=== PATIENT | female | born 1935 | race American Indian/Alaskan Native ===

== ENCOUNTER 2018-07-20 18:35 | Emergency (ER) | payer MEDICARE, OTHER ==
--- NOTE | 2018-07-20 20:19 | Emergency Department Report ---
ED Back Pain/Injury HPI - General Chief Complaint: Back Pain/Injury Stated Complaint: BACK PAIN Time Seen by Provider: 07/20/18 20:15 Source: patient, EMS Limitations: Altered Mental Status - History of Present Illness Initial Comments: Patient is an 83-year-old female presents to emergency room after a fall at home. Patient states at the end this morning she fell down 6 stairs at home. Patient states she had her mid to lower back on the stairs. Patient states she has a history of compression fractures in her lower back already. Patient states that she called EMS because the pain was getting worse. Patient states the pain is an 8 out of 10. Patient states the pain is better with rest and worse with movement. Patient denies loss of consciousness and hitting her head. She states approximately 4 weeks ago she was diagnosed with a lumbar compression fracture and is being treated by her primary care. MD Complaint: back pain -: Sudden Place: home Radiation: none Severity scale (0 -10): 8 Quality: sharp Consistency: constant Improves With: supine Worsens With: movement, sitting upright, walking Context: fall Associated Symptoms: denies: confusion, weakness, chest pain, numbness, difficulty walking, cough, difficulty urinating, diaphoresis, incontinence, fever/chills, constipation, headaches, abdominal pain, loss of appetite, malaise , nausea/vomiting, rash, seizure, shortness of breath, syncope - Related Data Home Medications Medication Instructions Recorded Confirmed Last Taken Acetaminophen [Tylenol Extra 500 mg PO PRN 07/20/18 07/20/18 Unknown Strength] Amlodipine Besylate [Norvasc] 5 mg PO DAILY 07/20/18 07/20/18 Unknown Aspirin 325 mg PO PRN 07/20/18 07/20/18 Unknown Aspirin [Aspirin EC] 81 mg PO DAILY 07/20/18 07/20/18 Unknown Carvedilol [Coreg] 12.5 mg PO BID 07/20/18 07/20/18 Unknown Furosemide [Lasix] 20 mg PO DAILY 07/20/18 07/20/18 Unknown Gabapentin [Neurontin] 300 mg PO Q8HR 07/20/18 07/20/18 Unknown Loratadine [Allergy Relief] 10 mg PO PRN 07/20/18 07/20/18 Unknown Pantoprazole [Protonix TAB] 20 mg PO DAILY 07/20/18 07/20/18 Unknown Ranolazine [Ranexa] 500 mg PO BID 07/20/18 07/20/18 Unknown Simvastatin 20 mg PO HS 07/20/18 07/20/18 Unknown glyBURIDE [Diabeta] 2.5 mg PO DAILY 07/20/18 07/20/18 Unknown Previous Rx's Medication Instructions Recorded Last Taken Type traMADol [Ultram] 50 mg PO Q4HR PRN #15 tablet 07/20/18 Unknown Rx Allergies Allergy/AdvReac Type Severity Reaction Status Date / Time Penicillins Allergy Unknown Verified 07/20/18 19:28 ED Review of Systems ROS: Stated complaint: BACK PAIN Other details as noted in HPI Constitutional: denies: chills, fever Eyes: denies: eye pain, eye discharge, vision change ENT: denies: ear pain, throat pain Respiratory: denies: cough, shortness of breath, wheezing Cardiovascular: denies: chest pain, palpitations Endocrine: no symptoms reported Gastrointestinal: denies: abdominal pain, nausea, diarrhea Genitourinary: denies: urgency, dysuria, discharge Musculoskeletal: back pain. denies: joint swelling, arthralgia Skin: denies: rash, lesions Neurological: denies: headache, weakness, paresthesias Psychiatric: denies: anxiety, depression Hematological/Lymphatic: denies: easy bleeding, easy bruising ED Past Medical Hx - Past Medical History Previous Medical History?: Yes Hx Diabetes: Yes Hx Asthma: Yes Additional medical history: "hearing problems" L2 compression fracture/ - Surgical History Past Surgical History?: Yes Additional Surgical History: Aortic Valve Replacement - Family History Family history: hypertension - Social History Smoking Status: Never Smoker Substance Use Type: None - Medications Home Medications: Home Medications Medication Instructions Recorded Confirmed Last Taken Type Acetaminophen [Tylenol Extra 500 mg PO PRN 07/20/18 07/20/18 Unknown History Strength] Amlodipine Besylate [Norvasc] 5 mg PO DAILY 07/20/18 07/20/18 Unknown History Aspirin 325 mg PO PRN 07/20/18 07/20/18 Unknown History Aspirin [Aspirin EC] 81 mg PO DAILY 07/20/18 07/20/18 Unknown History Carvedilol [Coreg] 12.5 mg PO BID 07/20/18 07/20/18 Unknown History Furosemide [Lasix] 20 mg PO DAILY 07/20/18 07/20/18 Unknown History Gabapentin [Neurontin] 300 mg PO Q8HR 07/20/18 07/20/18 Unknown History Loratadine [Allergy Relief] 10 mg PO PRN 07/20/18 07/20/18 Unknown History Pantoprazole [Protonix TAB] 20 mg PO DAILY 07/20/18 07/20/18 Unknown History Ranolazine [Ranexa] 500 mg PO BID 07/20/18 07/20/18 Unknown History Simvastatin 20 mg PO HS 07/20/18 07/20/18 Unknown History glyBURIDE [Diabeta] 2.5 mg PO DAILY 07/20/18 07/20/18 Unknown History traMADol [Ultram] 50 mg PO Q4HR PRN #15 tablet 07/20/18 Unknown Rx ED Physical Exam - General Limitations: Altered Mental Status General appearance: alert, in no apparent distress - Head Head exam: Present: atraumatic, normocephalic - Eye Eye exam: Present: normal appearance - ENT ENT exam: Present: mucous membranes moist - Neck Neck exam: Present: normal inspection - Respiratory Respiratory exam: Present: normal lung sounds bilaterally. Absent: respiratory distress - Cardiovascular Cardiovascular Exam: Present: regular rate, normal rhythm. Absent: systolic murmur, diastolic murmur, rubs, gallop - GI/Abdominal GI/Abdominal exam: Present: soft, normal bowel sounds - Extremities Exam Extremities exam: Present: normal inspection - Back Exam Back exam: Present: normal inspection, tenderness (tenderness to palpation over T11-12 and L2-3 ) - Neurological Exam Neurological exam: Present: alert, oriented X3, CN II-XII intact, reflexes normal. Absent: motor sensory deficit - Psychiatric Psychiatric exam: Present: normal affect, normal mood - Skin Skin exam: Present: warm, dry, intact, normal color. Absent: rash ED Course Vital Signs 07/20/18 07/20/18 07/20/18 19:12 19:17 19:20 Temperature 98.2 F Pulse Rate 76 74 73 Respiratory 14 13 14 Rate Blood Pressure 146/69 146/69 O2 Sat by Pulse 98 98 96 Oximetry 07/20/18 07/20/18 07/20/18 19:40 20:00 20:20 Temperature Pulse Rate 74 76 Respiratory 14 13 Rate Blood Pressure 154/61 154/64 154/64 O2 Sat by Pulse 97 96 98 Oximetry 07/20/18 07/20/18 07/20/18 20:50 21:00 21:44 Temperature Pulse Rate 73 72 Respiratory 14 14 Rate Blood Pressure 154/61 138/66 138/66 O2 Sat by Pulse 97 94 97 Oximetry 07/20/18 07/20/18 07/20/18 22:00 22:40 23:00 Temperature Pulse Rate 73 74 76 Respiratory 14 15 15 Rate Blood Pressure 132/62 163/68 136/55 O2 Sat by Pulse 98 97 95 Oximetry - Reevaluation(s) Reevaluation #1: Patient examined. Based on the patient's history and the patient's exam, we will do a CT scan of the patient's T-spine and L-spine 07/20/18 20:01 Skeletal results with patient. Patient voiced understanding of all results. Patient given discharge instructions. Patient instructed to take Ultram as directed. Patient states she does not want anything stronger than Ultram. 07/21/18 23:30 ED Medical Decision Making - Radiology Data Radiology results: report reviewed FINAL REPORT PROCEDURE: CT THORACIC SPINE WO CON TECHNIQUE: Computerized axial tomography of the thoracic spine was performed from C7 - L1 without contrast material. HISTORY: fall. pain COMPARISON: No prior studies are available for comparison. FINDINGS: The thoracic vertebrae are intact. There is a fracture of the superior endplate of L2. There are multilevel degenerative disc changes. There is no malalignment. Facet joints are intact. There is no significant bony spinal or foraminal stenosis. The paraspinal soft tissues are unremarkable. IMPRESSION: Thoracic vertebrae are intact. Transcribed By: CO Dictated By: SHAR MARTIN MD Electronically Authenticated By: SHAR MARTIN MD Signed Date/Time: 07/20/182202 FINAL REPORT PROCEDURE: CT LUMBAR SPINE WO CON TECHNIQUE: Computerized axial tomography of the lumbar spine was performed from T12 to the sacrum without contrast material. HISTORY: fall. pain COMPARISON: No prior studies are available for comparison. FINDINGS: There is depression of the superior endplate of L2 consistent with a recent fracture. There is no retropulsion or malalignment. There is no significant loss of vertebral body height. There is degenerative loss of disc height at L3-L4, L4-5 and L5-S1 with associated facet arthropathy and osteophytic ridging and severe bilateral foraminal stenosis. There is severe spinal stenosis at L3-L4 due to facet arthropathy, disc bulging and thickening of the ligamentum flavum. There is moderate spinal stenosis at L4-5. The sacrum and sacroiliac joints are intact. Paraspinal soft tissues are unremarkable. IMPRESSION: Recent compression deformity of the superior endplate of L2. Transcribed By: CO Dictated By: SHAR MARTIN MD Electronically Authenticated By: SHAR MARTIN MD Signed Date/Time: 07/20/18 2164 - Medical Decision Making Patient is an 83-year-old female presents emergency room with a fall at home. Patient states she had her thoracic and lumbar spine. CTs were done of the lumbar thoracic spine. Patient's only findings on her CT scan were her compression fraction that was found 4 weeks ago. It is a stable compression fraction and patient is stable for discharge. Patient will be discharged home with discharge instructions. Patient instructed to follow up with orthopedist and primary care in 3-5 days. Patient advised to return to ER for condition worsens. Patient advised to take her medications as directed. Patient to rest. Patient voiced understanding of all instructions. Family at bedside voiced understanding of all instructions. - Differential Diagnosis back pain. fall. contusion. fx. Critical care attestation.: If time is entered above; I have spent that time in minutes in the direct care of this critically ill patient, excluding procedure time. ED Disposition Clinical Impression: Fall Qualifiers: Encounter type: initial encounter Qualified Code(s): W19.XXXA - Unspecified fall, initial encounter Back pain Qualifiers: Back pain location: low back pain Chronicity: acute Back pain laterality: midline Sciatica presence: without sciatica Qualified Code(s): M54.5 - Low back pain Thoracic back pain Qualifiers: Chronicity: acute Back pain laterality: midline Qualified Code(s): M54.6 - Pain in thoracic spine Compression fracture of lumbar vertebra Qualifiers: Encounter type: initial encounter Lumbar vertebra fracture level: L2 Fracture type: closed Qualified Code(s): S32.020A - Wedge compression fracture of second lumbar vertebra, initial encounter for closed fracture Disposition: DC-01 TO HOME OR SELFCARE Is pt being admited?: No Does the pt Need Aspirin: No Condition: Stable Instructions: Vertebral Compression Fracture (ED) Additional Instructions: H and to follow up with primary care in 3-5 days. Patient to follow-up with orthopedist in 3-5 days. Patient to return to ER if condition worsens. Patient to rest. Patient to take meds as directed. Patient to take Tylenol or ibuprofen when necessary for pain Prescriptions: traMADol [Ultram] 50 mg PO Q4HR PRN #15 tablet PRN Reason: Pain Referrals: PRIMARY CARE, [Primary Care Provider] - 3-5 Days Time of Disposition: 23:16
--- NOTE | 2018-07-20 22:04 | Cat Scan Report ---
FINAL REPORT PROCEDURE: CT THORACIC SPINE WO CON TECHNIQUE: Computerized axial tomography of the thoracic spine was performed from C7 - L1 without contrast material. HISTORY: fall. pain COMPARISON: No prior studies are available for comparison. FINDINGS: The thoracic vertebrae are intact. There is a fracture of the superior endplate of L2. There are multilevel degenerative disc changes. There is no malalignment. Facet joints are intact. There is no significant bony spinal or foraminal stenosis. The paraspinal soft tissues are unremarkable. IMPRESSION: Thoracic vertebrae are intact.
--- NOTE | 2018-07-20 22:07 | Cat Scan Report ---
FINAL REPORT PROCEDURE: CT LUMBAR SPINE WO CON TECHNIQUE: Computerized axial tomography of the lumbar spine was performed from T12 to the sacrum without contrast material. HISTORY: fall. pain COMPARISON: No prior studies are available for comparison. FINDINGS: There is depression of the superior endplate of L2 consistent with a recent fracture. There is no retropulsion or malalignment. There is no significant loss of vertebral body height. There is degenerative loss of disc height at L3-L4, L4-5 and L5-S1 with associated facet arthropathy and osteophytic ridging and severe bilateral foraminal stenosis. There is severe spinal stenosis at L3-L4 due to facet arthropathy, disc bulging and thickening of the ligamentum flavum. There is moderate spinal stenosis at L4-5. The sacrum and sacroiliac joints are intact. Paraspinal soft tissues are unremarkable. IMPRESSION: Recent compression deformity of the superior endplate of L2.
[2018-07-20 23:33] VITALS: BP 136/55
== END 2018-07-21 00:11 | disposition home or self-care (01) ==
LOC: ED 18:35
DX: S32.020A Wedge compression fracture of second lumbar vertebra, initial encounter for closed fracture (principal); M54.5 Low back pain; M54.6 Pain in thoracic spine; E11.9 Type 2 diabetes mellitus without complications; J45.909 Unspecified asthma, uncomplicated; Z88.0 Allergy status to penicillin; Z95.2 Presence of prosthetic heart valve; W10.8XXA Fall (on) (from) other stairs and steps, initial encounter; Y93.01 Activity, walking, marching and hiking; Y99.0 Civilian activity done for income or pay; Y92.019 Unspecified place in single-family (private) house as the place of occurrence of the external cause
CPT/HCPCS: 72128; 72131

== ENCOUNTER 2019-05-31 18:28 | Emergency (ER) | payer MEDICARE, OTHER ==
[2019-05-31 18:34] VITALS: BP 147/61
--- NOTE | 2019-05-31 18:36 | Event Note ---
ED Screening Note Date of service: 05/31/19 Time: 18:32 ED Screening Note: This is a 83 y.o. F. that presents to the ER with left wrist and left hip pain. She also reports an abrasion to left forearm. Patient states she tripped over her foot in kitchen at home about 30 minutes [employer]. PMH DM, HTN, compression fx, diverticulosis, hearing loss Denies loss of consciousness This initial assessment/diagnostic orders/clinical plan/treatment(s) is/are subject to change based on patients health status, clinical progression and re- assessment by fellow clinical providers in the ED. Further treatment and workup at subsequent clinical providers discretion. Patient/guardian urged not to elope from the ED as their condition may be serious if not clinically assessed and managed. Initial orders include: XR left wrist and left hip
[2019-05-31] MEDS ORDERED: NORCO 5/325 PO ONE (19:11)
--- NOTE | 2019-05-31 19:22 | XRay Report ---
Left hip 2 views 1906 INDICATION: Fall Lower lumbar degenerative changes are seen. Moderate right and mild left hip degenerative changes are noted. Mild atherosclerotic changes are seen. Mild bilateral sacroiliac arthritic changes are noted. No fractures or dislocations are seen. Signer Name: Jesus Olivas MD Signed: 05/31/2019 7:18 PM Workstation Name: [id number]
--- NOTE | 2019-05-31 19:38 | Emergency Department Report ---
Upper Extremity - HPI Chief Complaint: Fall Stated Complaint: FELL ON ARM Time Seen by Provider: 05/31/19 18:31 Upper Extremity: Left Wrist Occurred When: Today Mechanism: Fall Severity: moderate Symptoms: Yes Pain with Movement, Yes Limited Range of Movement, Yes Swelling, No Deformity, No Numbness, No Weakness, No Bruising/Ecchymosis, No Laceration or Abrasion Other History: pt is a 83 y/o aaf who presents for left wrist pain swelling s/p GLF states she tried to catch herselft and bent her wrist backwards. pt comp lains of 5/10 aching and pain , pain exacerbated by movement , pain relieved by splinting , pt has secondary complaint of bilat hip pain hx of arthralgia ED Review of Systems ROS: Stated complaint: FELL ON ARM Other details as noted in HPI Constitutional: denies: chills, fever Eyes: denies: eye pain, eye discharge, vision change ENT: denies: ear pain, throat pain Respiratory: denies: cough, shortness of breath, wheezing Cardiovascular: denies: chest pain, palpitations Endocrine: no symptoms reported Gastrointestinal: denies: abdominal pain, nausea, vomiting, diarrhea Genitourinary: denies: urgency, dysuria, discharge Musculoskeletal: joint swelling, arthralgia, myalgia. denies: back pain Skin: denies: rash, lesions Neurological: denies: headache, weakness, numbness, paresthesias, confusion, abnormal gait, vertigo Psychiatric: denies: anxiety, depression Hematological/Lymphatic: denies: easy bleeding, easy bruising ED Past Medical Hx - Past Medical History Previous Medical History?: Yes Hx Hypertension: Yes Hx Congestive Heart Failure: No Hx Diabetes: Yes Hx Renal Disease: No Hx Arthritis: Yes Hx Asthma: Yes Additional medical history: "hearing problems" L2 compression fracture/ diverticulitis/diverticulosis - Surgical History Hx Cholecystectomy: Yes Hx Appendectomy: Yes Additional Surgical History: Aortic Valve Replacement. hystertectomy - Social History Smoking Status: Never Smoker Substance Use Type: None - Medications Home Medications: Home Medications Medication Instructions Recorded Confirmed Last Taken Type Amlodipine Besylate [Norvasc] 5 mg PO DAILY 07/20/18 09/11/18 09/08/18 History Aspirin [Aspirin EC] 81 mg PO DAILY 07/20/18 09/11/18 09/08/18 History Carvedilol [Coreg] 12.5 mg PO BID 07/20/18 09/11/18 09/08/18 History Furosemide [Lasix] 20 mg PO DAILY 07/20/18 09/11/18 09/08/18 History Gabapentin [Neurontin] 300 mg PO Q8HR 07/20/18 09/11/18 09/08/18 History Pantoprazole [Protonix TAB] 20 mg PO DAILY 07/20/18 09/11/18 09/08/18 History Ranolazine [Ranexa] 500 mg PO BID 07/20/18 09/11/18 Unknown History Simvastatin 20 mg PO HS 07/20/18 09/11/18 09/08/18 History glyBURIDE [Diabeta] 2.5 mg PO DAILY 07/20/18 09/11/18 09/08/18 History traMADol [Ultram 50 MG tab] 50 mg PO Q4HR PRN #15 tablet 07/20/18 09/11/18 09/08/18 Rx Pravastatin [Pravachol] 40 mg PO QHS tablet 08/18/18 09/11/18 09/08/18 Rx levoFLOXacin [Levaquin TAB] 750 mg PO Q24HR #10 tablet 08/18/18 09/11/18 09/08/18 Rx metroNIDAZOLE [Flagyl TAB] 500 mg PO Q8HR #30 tablet 08/18/18 09/11/18 09/08/18 Rx traMADol [Ultram 50 MG tab] 50 mg PO Q6HR PRN #14 tablet 09/02/18 09/11/18 09/08/18 Rx PE/Shark Liver/Ccb [Hemorrhoidal 1 each KS Q6H PRN #30 supp.rect 09/13/18 Unknown Rx 0.25/3/85.5%] HYDROcodone/APAP 5-325 [Lebo 1 each PO Q6HR PRN #12 tablet 05/31/19 Unknown Rx 5-325 mg TAB] Upper Extremity Exam - Exam General: Vital signs noted. No distress. Alert and acting appropriately. Head and Torso: No HEENT Abnormality, No Neck Tenderness, No Chest/Lungs Abnormality, No Abdominal Tenderness, No Back Tenderness Shoulder Exam: Yes Normal Range of Motion in Shoulder, No Shoulder Tenderness, No Clavicle Tenderness, No Shoulder Deformity, No AC Joint Tenderness Arm Exam: No Arm/Humerus Tenderness, No Arm Deformity Elbow: Yes Normal Range of Motion in Elbow, No Elbow Tenderness, No Elbow Deformity Forearm: Yes Pain with Pronation, Yes Pain with Supination, No Forearm Tenderness, No Forearm Deformity Wrist: Yes Wrist Tenderness, Yes Wrist Deformity, No Normal ROM in Wrist, No Snuffbox Tenderness, No Pain with Axial Thumb Compression Hand: Yes Digit Tenderness, Yes Normal ROM in Digit(s), No Hand Tenderness, No Hand Deformity, No Digit(s) Deformity, No Tendon Dysfunction CMS Exam: Yes Normal Distal Pulses, Yes Normal Capillary Refill, Yes Normal Distal Sensation, No Broken Skin ED Course Vital Signs 05/31/19 18:32 Temperature 97.8 F Pulse Rate 71 Respiratory 18 Rate Blood Pressure 147/61 O2 Sat by Pulse 97 Oximetry ED Medical Decision Making - Radiology Data Radiology results: report reviewed, image reviewed Ordering Physician: ANGELINA GUADALUPE Date of Service: 05/31/19 Procedure(s): XR hip 2-3V LT Accession Number(s): [id number] cc: ANGELINA GUADALUPE Fluoro Time In Minutes: Left hip 2 views 190 INDICATION: Fall Lower lumbar degenerative changes are seen. Moderate right and mild left hip degenerative changes are noted. Mild atherosclerotic changes are seen. Mild bilateral sacroiliac arthritic changes are noted. No fractures or dislocations are seen. Signer Name: Jesus Olivas MD Signed: 05/31/2019 7:18 PM Workstation Name: [id number] Transcribed By: GJ Dictated By: Jesus Olivas MD Electronically Authenticated By: Jesus Olivas MD Signed Date/Time: 05/31/191917 DD/ 15 TD/TT: closed distal radial fracture Ordering Physician: ANGELINA GUADALUPE Date of Service: 05/31/19 Procedure(s): XR wrist 2V LT Accession Number(s): [id number] cc: ANGELINA GUADALUPE Fluoro Time In Minutes: Left wrist 2 views 1853 INDICATION: Fall, wrist deformity A comminuted and impacted fracture of the distal radius is seen involving the metaphysis extending to the radiocarpal joint in the lateral aspect. This appears to be mildly comminuted. Dorsal angulation is seen. Avulsion of the ulnar styloid is seen at the base. Bone fragments are seen displaced dorsally which may be part of the ulnar ovoid though could include radial fragments. No definite dislocation is seen as I believe the lunate continues to articulate with portion of the distal radius. Moderate arthritic changes are seen laterally and at the radiocarpal joint. 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 plan, velcro thumb spica , follow up with Ortho tomorrow, hydrocodone prn pain, Critical care attestation.: If time is entered above; I have spent that time in minutes in the direct care of this critically ill patient, excluding procedure time. ED Disposition Clinical Impression: Closed fracture of distal end of radius Qualifiers: Encounter type: initial encounter Fracture morphology: unspecified fracture morphology Laterality: left Qualified Code(s): S52.502A - Unspecified fracture of the lower end of left radius, initial encounter for closed fracture Arthralgia Qualifiers: Joint pain location: hip Laterality: bilateral Qualified Code(s): M25.551 - Pain in right hip Fall Qualifiers: Encounter type: initial encounter Qualified Code(s): W19.XXXA - Unspecified fall, initial encounter Disposition: - TO HOME OR SELFCARE Is pt being admited?: No Does the pt Need Aspirin: No Condition: Stable Instructions: Wrist Fracture in Adults (ED), Arthralgia (ED) Prescriptions: HYDROcodone/APAP 5-325 [Lebo 5-325 mg TAB] 1 each PO Q6HR PRN #12 tablet PRN Reason: Pain Referrals: DEONNA CRUZ MD [Staff Physician] - 24 Hours Forms: Work/School Release Form(ED) Time of Disposition: 20:43
--- NOTE | 2019-05-31 19:40 | XRay Report ---
Left wrist 2 views 185 INDICATION: Fall, wrist deformity A comminuted and impacted fracture of the distal radius is seen involving the metaphysis extending to the radiocarpal joint in the lateral aspect. This appears to be mildly comminuted. Dorsal angulation is seen. Avulsion of the ulnar styloid is seen at the base. Bone fragments are seen displaced dorsal ly which may be part of the ulnar ovoid though could include radial fragments. No definite dislocatio n is seen as I believe the lunate continues to articulate with portion of the distal radius. Moderate arthritic changes are seen laterally and at the radiocarpal joint. Signer Name: Jesus Olvias MD Signed: 05/31/2019 7:36 PM Workstation Name: [id number]
== END 2019-05-31 20:55 | disposition home or self-care (01) ==
LOC: ED 18:28
DX: S52.502A Unspecified fracture of the lower end of left radius, initial encounter for closed fracture (principal); I10 Essential (primary) hypertension; E11.9 Type 2 diabetes mellitus without complications; M19.90 Unspecified osteoarthritis, unspecified site; J45.909 Unspecified asthma, uncomplicated; Z90.49 Acquired absence of other specified parts of digestive tract; Z90.710 Acquired absence of both cervix and uterus; Z88.0 Allergy status to penicillin; Z79.82 Long term (current) use of aspirin; Z79.899 Other long term (current) drug therapy; W18.30XA Fall on same level, unspecified, initial encounter; Y93.89 Activity, other specified; Y92.89 Other specified places as the place of occurrence of the external cause; Y99.8 Other external cause status
CPT/HCPCS: 99284

== ENCOUNTER 2019-06-07 11:13 | Emergency (ER) | payer MEDICARE, OTHER ==
[2019-06-07 11:50] VITALS: BP 135/42
--- NOTE | 2019-06-07 11:55 | Emergency Department Report ---
ED Recheck HPI - General Chief Complaint: Extremity Problem,Nontraumatic Stated Complaint: PAIN Time Seen by Provider: 06/07/19 11:47 Source: patient Mode of arrival: Wheelchair Limitations: No Limitations - History of Present Illness Initial Comments: This is a 84-year-old female nontoxic well in appearance with no signs of distress presents to the ED for medication refill. Patient has a left velcro splint. Patient denies any new trauma or injures. Patient denies any other symptoms or complaints. Stated has orthopedic follow-up next week [place]. Denies any fever, chills, headache, nausea, vomiting, chest pain or SOB. Denies any other complaints. Patient stated allergies to PCN. Symptoms Since Prior Visit: no new symptoms Associated Symptoms: none. denies: fever, chills, chest pain, shortness of breath, rash, malaise, [place], abdominal pain - Related Data Home Medications Medication Instructions Recorded Confirmed Last Taken Amlodipine Besylate [Norvasc] 5 mg PO DAILY 07/20/18 09/11/18 09/08/18 Aspirin [Aspirin EC] 81 mg PO DAILY 07/20/18 09/11/18 09/08/18 Carvedilol [Coreg] 12.5 mg PO BID 07/20/18 09/11/18 09/08/18 Furosemide [Lasix] 20 mg PO DAILY 07/20/18 09/11/18 09/08/18 Gabapentin [Neurontin] 300 mg PO Q8HR 07/20/18 09/11/18 09/08/18 Pantoprazole [Protonix TAB] 20 mg PO DAILY 07/20/18 09/11/18 09/08/18 Ranolazine [Ranexa] 500 mg PO BID 07/20/18 09/11/18 Unknown Simvastatin 20 mg PO HS 07/20/18 09/11/18 09/08/18 glyBURIDE [Diabeta] 2.5 mg PO DAILY 07/20/18 09/11/18 09/08/18 Previous Rx's Medication Instructions Recorded Last Taken Type traMADol [Ultram 50 MG tab] 50 mg PO Q4HR PRN #15 tablet 07/20/18 09/08/18 Rx Pravastatin [Pravachol] 40 mg PO QHS tablet 10/18/18 11/08/18 Rx levoFLOXacin [Levaquin TAB] 750 mg PO Q24HR #10 tablet 08/18/18 09/08/18 Rx metroNIDAZOLE [Flagyl TAB] 500 mg PO Q8HR #30 tablet 08/18/18 09/08/18 Rx traMADol [Ultram 50 MG tab] 50 mg PO Q6HR PRN #14 tablet 09/02/18 09/08/18 Rx PE/Shark Liver/Ccb [Hemorrhoidal 1 each MD Q6H PRN #30 supp.rect 09/13/18 Unknown Rx 0.25/3/85.5%] HYDROcodone/APAP 5-325 [[place] 1 each PO Q6HR PRN #12 tablet 05/31/19 Unknown Rx 5-325 mg TAB] Acetaminophen/Codeine [Tylenol 1 tab PO Q6H PRN #12 tab 06/07/19 Unknown Rx /Codeine # 3 tab] Allergies Allergy/AdvReac Type Severity Reaction Status Date / Time Penicillins Allergy Unknown Verified 07/20/18 19:28 ED Review of Systems ROS: Stated complaint: PAIN Other details as noted in HPI Constitutional: denies: chills, fever Eyes: denies: eye pain, eye discharge, vision change ENT: denies: ear pain, throat pain Respiratory: denies: cough, shortness of breath, wheezing Cardiovascular: denies: chest pain, palpitations Endocrine: no symptoms reported Gastrointestinal: denies: abdominal pain, nausea, diarrhea Genitourinary: denies: urgency, dysuria, discharge Musculoskeletal: denies: back pain, joint swelling, arthralgia Skin: denies: rash, lesions Neurological: denies: headache, weakness, paresthesias Psychiatric: denies: anxiety, depression Hematological/Lymphatic: denies: easy bleeding, easy bruising ED Past Medical Hx - Past Medical History Previous Medical History?: Yes Hx Hypertension: Yes Hx Congestive Heart Failure: No Hx Diabetes: Yes Hx Renal Disease: No Hx Arthritis: Yes Hx Asthma: Yes Additional medical history: "hearing problems" L2 compression fracture/ diverticulitis/diverticulosis - Surgical History Past Surgical History?: Yes Hx Cholecystectomy: Yes Hx Appendectomy: Yes Additional Surgical History: Aortic Valve Replacement. hystertectomy - Social History Smoking Status: Never Smoker Substance Use Type: None - Medications Home Medications: Home Medications Medication Instructions Recorded Confirmed Last Taken Type Amlodipine Besylate [Norvasc] 5 mg PO DAILY 07/20/18 09/11/18 09/08/18 History Aspirin [Aspirin EC] 81 mg PO DAILY 07/20/18 09/11/18 09/08/18 History Carvedilol [Coreg] 12.5 mg PO BID 07/20/18 09/11/18 09/08/18 History Furosemide [Lasix] 20 mg PO DAILY 07/20/18 09/11/18 09/08/18 History Gabapentin [Neurontin] 300 mg PO Q8HR 07/20/18 09/11/18 09/08/18 History Pantoprazole [Protonix TAB] 20 mg PO DAILY 07/20/18 09/11/18 09/08/18 History Ranolazine [Ranexa] 500 mg PO BID 07/20/18 09/11/18 Unknown History Simvastatin 20 mg PO HS 07/20/18 09/11/18 09/08/18 History glyBURIDE [Diabeta] 2.5 mg PO DAILY 07/20/18 09/11/18 09/08/18 History traMADol [Ultram 50 MG tab] 50 mg PO Q4HR PRN #15 tablet 07/20/18 09/11/18 09/08/18 Rx Pravastatin [Pravachol] 40 mg PO QHS tablet 08/18/18 09/11/18 09/08/18 Rx levoFLOXacin [Levaquin TAB] 750 mg PO Q24HR #10 tablet 08/18/18 09/11/18 09/08/18 Rx metroNIDAZOLE [Flagyl TAB] 500 mg PO Q8HR #30 tablet 08/18/18 09/11/18 09/08/18 Rx traMADol [Ultram 50 MG tab] 50 mg PO Q6HR PRN #14 tablet 09/02/18 09/11/18 09/08/18 Rx PE/Shark Liver/Ccb [Hemorrhoidal 1 each MD Q6H PRN #30 supp.rect 09/13/18 Unknown Rx 0.25/3/85.5%] HYDROcodone/APAP 5-325 [[place] 1 each PO Q6HR PRN #12 tablet 05/31/19 Unknown Rx 5-325 mg TAB] Acetaminophen/Codeine [Tylenol 1 tab PO Q6H PRN #12 tab 06/07/19 Unknown Rx /Codeine # 3 tab] ED Physical Exam - General Limitations: No Limitations General appearance: alert, in no apparent distress - Head Head exam: Present: atraumatic, normocephalic - Extremities Exam Extremities exam: Present: normal inspection, full ROM, tenderness, normal capillary refill, other (bilateral hands/wrist neurovascular intact. Velcro splint in place.). Absent: joint swelling, calf tenderness - Back Exam Back exam: Present: normal inspection, full ROM - Neurological Exam Neurological exam: Present: alert, oriented X3 - Psychiatric Psychiatric exam: Present: normal affect, normal mood - Skin Skin exam: Present: warm, dry, intact, normal color. Absent: rash ED Course - Reevaluation(s) Reevaluation #1: 06/07/19 11:56 Patient is speaking in full sentences with no signs of distress nted. ED Recheck MDM - Medical Decision Making Patient was instructed to Follow-up with a orthopedic doctor in 3-5 days or if symptoms worsen and continue return to emergency room as soon as possible. At time of discharge, the patient does not seem toxic or ill in appearance. No acute signs of distress noted. Patient agrees to discharge treatment plan of care. No further questions noted by the patient. Critical care attestation.: If time is entered above; I have spent that time in minutes in the direct care of this critically ill patient, excluding procedure time. ED Disposition Clinical Impression: Medication refill Disposition: DC-01 TO HOME OR SELFCARE Is pt being admited?: No Does the pt Need Aspirin: No Condition: Stable Instructions: Acetaminophen/Codeine (By mouth) Additional Instructions: Follow-up with a orthopedic doctor in 3-5 days or if symptoms worsen and continue return to emergency room as soon as possible. Do not operate any machinery while taking Tylenol with codeine as this can cause drowsiness. Prescriptions: Acetaminophen/Codeine [Tylenol /Codeine # 3 tab] 1 tab PO Q6H PRN #12 tab PRN Reason: Pain , Severe (7-10) Referrals: PRIMARY CARE, [Referring] - 3-5 Days DEONNA GAMBOA MD [Staff Physician] - 3-5 Days
== END 2019-06-07 12:04 | disposition home or self-care (01) ==
LOC: ED 11:13
DX: I10 Essential (primary) hypertension (principal); E11.9 Type 2 diabetes mellitus without complications; M19.90 Unspecified osteoarthritis, unspecified site; Z76.0 Encounter for issue of repeat prescription; J45.909 Unspecified asthma, uncomplicated; Z90.49 Acquired absence of other specified parts of digestive tract; Z90.710 Acquired absence of both cervix and uterus; Z79.82 Long term (current) use of aspirin; Z79.899 Other long term (current) drug therapy; Z88.0 Allergy status to penicillin
CPT/HCPCS: 99282

== ENCOUNTER 2019-07-10 12:54 | Outpatient (CLI) | payer MEDICARE, OTHER ==
--- NOTE | 2019-07-10 15:42 | XRay Report ---
LEFT WRIST, 4 VIEWS INDICATION: S52.502A) Unspecified fracture of the lower end of left radius, i. COMPARISON: 05/31/2019 IMPRESSION: Osteopenia is evident. The comminuted distal radial fracture and transverse fracture at the base of the ulnar styloid appear unchanged in position and alignment since 05/31/2019. There is m ild callus formation although the fracture lines remain evident. There are diffuse degenerative garay es. Moderate diffuse soft tissue swelling is also identified. No new acute process is appreciated. Signer Name: Rahat Fitch Jr, MD Signed: 07/10/2019 3:37 PM Workstation Name: [id number]
== END 2019-07-10 12:55 | disposition home or self-care (01) ==
LOC: XRAY 12:54
PROVIDERS: ATTEND Orthopaedic Surgery
DX: S52.592A Other fractures of lower end of left radius, initial encounter for closed fracture (principal); S52.612A Displaced fracture of left ulna styloid process, initial encounter for closed fracture; M85.862 Other specified disorders of bone density and structure, left lower leg; L84 Corns and callosities; X58.XXXA Exposure to other specified factors, initial encounter; Y93.89 Activity, other specified; Y99.8 Other external cause status; Y92.89 Other specified places as the place of occurrence of the external cause

== ENCOUNTER 2019-11-21 14:20 | Outpatient (CLI) | payer MEDICARE, OTHER ==
[2019-11-21 14:48] LABS: Hematocrit 38.3 % (30.3-42.9); Hemoglobin 12.3 gm/dl (10.1-14.3); Mean Corpuscular HGB Conc 32 % (30-34); Mean Corpuscular Volume 81 fl (79-97); Platelet Count 187 K/mm3 (140-440); Red Blood Count 4.74 M/mm3 (3.65-5.03); Red Cell Distribution Width 16.8 % (13.2-15.2)
[2019-11-21 16:12] LABS: Erythrocyte Sedimentation Rate 14 mm/Hr (0-20)
[2019-11-21 16:35] LABS: Alanine Aminotransferase 24 units/L (7-56); Albumin 4.2 g/dL (3.9-5); BUN/Creatinine Ratio 23; Blood Urea Nitrogen 18 mg/dL (7-17); Calcium 9.8 mg/dL (8.4-10.2); Hemolysis Index 14
== END 2019-11-21 14:21 | disposition home or self-care (01) ==
LOC: LAB 14:20
PROVIDERS: ATTEND Specialist
DX: I63.22 Cerebral infarction due to unspecified occlusion or stenosis of basilar artery (principal)
CPT/HCPCS: 36415; 80053; 82607; 83921; 85027; 85652

== ENCOUNTER 2019-12-18 16:00 | Emergency (ER) | payer MEDICARE, OTHER ==
--- NOTE | 2019-12-18 16:40 | Event Note ---
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 Referred from ophthlamologist office today of Dr. Mark Das This initial assessment/diagnostic orders/clinical plan/treatment(s) is/are subject to change based on patients health status, clinical progression and re- assessment by fellow clinical providers in the ED. Further treatment and workup at subsequent clinical providers discretion. Patient/guardian urged not to elope from the ED as their condition may be serious if not clinically assessed and managed. Initial orders include: labs ekg cxr CT head
--- NOTE | 2019-12-18 17:21 | Cat Scan Report ---
CT head/brain wo con INDICATION / CLINICAL INFORMATION: 84 years Female; Stroke symptoms. TECHNIQUE: Routine CT head without contrast. All CT scans at this location are performed using CT dos e reduction for ALARA by means of automated exposure control. COMPARISON: None. 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 Otherwise No acute hemorrhage, mass effect, midline shift, hydrocephalus, or acute, large territorial infarct. Mild cerebral and cerebellar atrophy noted. There are minimal areas of decreased attenuation in the white matter of the cerebral hemispheres. The se are nonspecific findings and may be related to microangiopathy (hypertension, diabetes, atheroscle rosis), given the patient's age. CRANIOCERVICAL JUNCTION: No significant abnormality. ORBITS: No significant abnormality of visualized orbits. SINUSES / MASTOIDS: No significant abnormality the visualized paranasal sinuses or mastoid air cells. ADDITIONAL FINDINGS: Atherosclerotic disease is seen in the anterior and posterior circulation. IMPRESSION: 1. No focal mass, hemorrhage, hydrocephalus, or acute, large territorial infarct. Signer Name: Bo Clemons MD, III Signed: 12/18/2019 5:16 PM Workstation Name: [id number]
--- NOTE | 2019-12-18 17:34 | XRay Report ---
CHEST 2 VIEWS INDICATION / CLINICAL INFORMATION: Chest pain and weakness. COMPARISON: 09/08/2018. FINDINGS: SUPPORT DEVICES: None. HEART / MEDIASTINUM: Median sternotomy. Normal heart size with a left ventricular configuration. Athe rosclerotic calcifications involving aorta without aneurysm. Normal pulmonary vasculature. LUNGS / PLEURA: Mild left basilar subsegmental atelectasis. The lungs are otherwise clear. No pneumot horax. ADDITIONAL FINDINGS: Moderately elevated left hemidiaphragm is chronic. IMPRESSION: No acute abnormality or significant change. Signer Name: Jarrell Agudelo MD Signed: 12/18/2019 5:30 PM Workstation Name: [id number]
[2019-12-18 17:47] LABS: Hyaline Casts,Urine 1 /LPF
[2019-12-18 17:55] LABS: Bilirubin,Urine Negative (Negative); Color,Urine Straw (Yellow)
[2019-12-18 17:56] LABS: Blood,Urine Negative (Negative); WBC,Urine < 1.0 /HPF (0.0-6.0)
[2019-12-18 20:15] LABS: Basophils % (Auto) 0.5 % (0.0-1.8); Eosinophils # (Auto) 0.1 K/mm3 (0.0-0.4); Eosinophils % (Auto) 1.9 % (0.0-4.3); Hematocrit 42.2 % (30.3-42.9); Hemoglobin 13.5 gm/dl (10.1-14.3); Lymphocytes # (Auto) 1.8 K/mm3 (1.2-5.4); Lymphocytes % (Auto) 27.3 % (13.4-35.0); Mean Corpuscular HGB Conc 32 % (30-34); Mean Corpuscular Volume 81 fl (79-97); Monocytes # (Auto) 0.5 K/mm3 (0.0-0.8); Monocytes % (Auto) 7.3 % (0.0-7.3); Platelet Count 198 K/mm3 (140-440); Red Blood Count 5.24 M/mm3 (3.65-5.03); Red Cell Distribution Width 16.8 % (13.2-15.2)
[2019-12-18 20:31] LABS: INR 1.06 (0.87-1.13)
[2019-12-18 20:32] LABS: Partial Thromboplastin Time 32.8 Sec. (24.2-36.6)
[2019-12-18 20:39] LABS: Alanine Aminotransferase 17 units/L (7-56); Albumin 4.4 g/dL (3.9-5); BUN/Creatinine Ratio 19; Blood Urea Nitrogen 15 mg/dL (7-17); Hemolysis Index 7
[2019-12-18 20:44] LABS: Thrombin Time 16.4 Sec. (15.1-19.6)
[2019-12-18] MEDS ORDERED: HYDROcodone/ACETAMINOPHEN 5-325 MG TAB PO ONE (21:30)
--- NOTE | 2019-12-18 22:33 | Emergency Department Report ---
<TRACIE DENNIS - Last Filed: 12/18/19 22:28> ED Chest Pain HPI - General Chief Complaint: Chest Pain Stated Complaint: CP/WEAKNESS Time Seen by Provider: 12/18/19 21:10 Source: family Mode of arrival: Wheelchair Limitations: No Limitations - History of Present Illness Initial Comments: Patient is a 84-year-old F Serbian female who is being brought in for right- sided chest pain. Patient states pain started approximately 3 days ago started in her right shoulder now she has pain in the right shoulder right chest with radiation to the center chest near the epigastrium. She denies nausea vomiting. Patient has pain with deep breathing as well. She also has pain with movement and palpation of the right chest. Patient denies any heavy lifting. Patient does state that she has a history for cough that is been present for approximately 3 weeks. Cough is dry. Pain is started again 3 days ago. 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 Patient also has a history of diabetes and hypertension. Severity scale (0 -10): 8 - Related Data Home Medications Medication Instructions Recorded Confirmed Last Taken Amlodipine Besylate [Norvasc] 5 mg PO DAILY 07/20/18 09/11/18 09/08/18 Aspirin [Aspirin EC] 81 mg PO DAILY 07/20/18 09/11/18 09/08/18 Furosemide [Lasix] 20 mg PO DAILY 07/20/18 09/11/18 09/08/18 Gabapentin 300 mg PO Q8HR 07/20/18 09/11/18 09/08/18 Pantoprazole [Protonix TAB] 20 mg PO DAILY 07/20/18 09/11/18 09/08/18 Ranolazine [Ranexa] 500 mg PO BID 07/20/18 09/11/18 Unknown Simvastatin 20 mg PO HS 07/20/18 09/11/18 09/08/18 carvediloL [Coreg] 12.5 mg PO BID 07/20/18 09/11/18 09/08/18 glyBURIDE [Diabeta] 2.5 mg PO DAILY 07/20/18 09/11/18 09/08/18 Previous Rx's Medication Instructions Recorded Last Taken Type traMADoL [Ultram 50 MG tab] 50 mg PO Q4HR PRN #15 tablet 07/20/18 09/08/18 Rx Pravastatin [Pravachol] 40 mg PO QHS tablet 08/18/18 09/08/18 Rx levoFLOXacin [Levaquin TAB] 750 mg PO Q24HR #10 tablet 08/18/18 09/08/18 Rx metroNIDAZOLE [Flagyl TAB] 500 mg PO Q8HR #30 tablet 08/18/18 09/08/18 Rx traMADoL [Ultram 50 MG tab] 50 mg PO Q6HR PRN #14 tablet 09/02/18 09/08/18 Rx PE/Shark Liver/Ccb [Hemorrhoidal 1 each LA Q6H PRN #30 supp.rect 09/13/18 Unknown Rx 0.25/3/85.5%] HYDROcodone/APAP 5-325 [[place] 1 each PO Q6HR PRN #12 tablet 05/31/19 Unknown Rx 5-325 mg TAB] Acetaminophen/Codeine [Tylenol 1 tab PO Q6H PRN #12 tab 06/07/19 Unknown Rx /Codeine # 3 tab] Benzonatate [Tessalon Perles] 100 mg PO Q8HR PRN #20 capsule 12/19/19 Unknown Rx traMADoL [Ultram] 50 mg PO Q6HR PRN #7 tablet 12/19/19 Unknown Rx Allergies Allergy/AdvReac Type Severity Reaction Status Date / Time Penicillins Allergy Unknown Verified 07/20/18 19:28 Heart Score - HEART Score History: Slightly suspicious EKG: Normal Age: > 65 Risk factors: 1-2 risk factors Troponin: < normal limit HEART Score: 3 ED Review of Systems Comment: All other systems reviewed and negative ED Past Medical Hx - Past Medical History Previous Medical History?: Yes Hx Hypertension: Yes Hx Congestive Heart Failure: No Hx Diabetes: Yes Hx Renal Disease: No Hx Arthritis: Yes Hx Asthma: Yes Additional medical history: "hearing problems" L2 compression fracture/ diverticulitis/diverticulosis - Surgical History Past Surgical History?: Yes Hx Cholecystectomy: Yes Hx Appendectomy: Yes Additional Surgical History: Aortic Valve Replacement. hystertectomy - Social History Smoking Status: Never Smoker Substance Use Type: None - Medications Home Medications: Home Medications Medication Instructions Recorded Confirmed Last Taken Type Amlodipine Besylate [Norvasc] 5 mg PO DAILY 07/20/18 09/11/18 09/08/18 History Aspirin [Aspirin EC] 81 mg PO DAILY 07/20/18 09/11/18 09/08/18 History Furosemide [Lasix] 20 mg PO DAILY 07/20/18 09/11/18 09/08/18 History Gabapentin 300 mg PO Q8HR 07/20/18 09/11/18 09/08/18 History Pantoprazole [Protonix TAB] 20 mg PO DAILY 07/20/18 09/11/18 09/08/18 History Ranolazine [Ranexa] 500 mg PO BID 07/20/18 09/11/18 Unknown History Simvastatin 20 mg PO HS 07/20/18 09/11/18 09/08/18 History carvediloL [Coreg] 12.5 mg PO BID 07/20/18 09/11/18 09/08/18 History glyBURIDE [Diabeta] 2.5 mg PO DAILY 07/20/18 09/11/18 09/08/18 History traMADoL [Ultram 50 MG tab] 50 mg PO Q4HR PRN #15 tablet 07/20/18 09/11/18 09/08/18 Rx Pravastatin [Pravachol] 40 mg PO QHS tablet 08/18/18 09/11/18 09/08/18 Rx levoFLOXacin [Levaquin TAB] 750 mg PO Q24HR #10 tablet 08/18/18 09/11/18 09/08/18 Rx metroNIDAZOLE [Flagyl TAB] 500 mg PO Q8HR #30 tablet 08/18/18 09/11/18 09/08/18 Rx traMADoL [Ultram 50 MG tab] 50 mg PO Q6HR PRN #14 tablet 09/02/18 09/11/18 09/08/18 Rx PE/Shark Liver/Ccb [Hemorrhoidal 1 each LA Q6H PRN #30 supp.rect 09/13/18 Unknown Rx 0.25/3/85.5%] HYDROcodone/APAP 5-325 [[place] 1 each PO Q6HR PRN #12 tablet 05/31/19 Unknown Rx 5-325 mg TAB] Acetaminophen/Codeine [Tylenol 1 tab PO Q6H PRN #12 tab 06/07/19 Unknown Rx /Codeine # 3 tab] Benzonatate [Tessalon Perles] 100 mg PO Q8HR PRN #20 capsule 12/19/19 Unknown Rx traMADoL [Ultram] 50 mg PO Q6HR PRN #7 tablet 12/19/19 Unknown Rx ED Physical Exam - General Limitations: No Limitations General appearance: alert, in no apparent distress - Head Head exam: Present: atraumatic, normocephalic - Eye Eye exam: Present: normal appearance - ENT ENT exam: Present: mucous membranes moist - Neck Neck exam: Present: normal inspection - Respiratory Respiratory exam: Present: normal lung sounds bilaterally, chest wall tenderness. Absent: respiratory distress, wheezes, rales - Cardiovascular Cardiovascular Exam: Present: regular rate, normal rhythm, normal heart sounds. Absent: systolic murmur, diastolic murmur, rubs, gallop - GI/Abdominal GI/Abdominal exam: Present: soft, normal bowel sounds. Absent: distended, tenderness, guarding - Extremities Exam Extremities exam: Present: normal inspection - Back Exam Back exam: Present: normal inspection - Neurological Exam Neurological exam: Present: alert, oriented X3 - Psychiatric Psychiatric exam: Present: normal affect, normal mood - Skin Skin exam: Present: warm, dry, intact, normal color. Absent: rash ED Course - Reevaluation(s) Reevaluation #1: 12/18/19 22:32 Patient's initial laboratory studies are within normal limits. Patient's first troponin is negative. A second troponin will be obtained to rule out NC. Patient also will be sent for a CT of the chest as well since the patient has pleuritic pain multiple medical core morbidities which includes TIAs or clotting. ED Medical Decision Making - Lab Data Result diagrams: 12/18/19 19:40 12/18/19 19:40 Lab Results 12/18/19 12/18/19 12/18/19 Range/Units 16:53 19:40 19:40 WBC 6.7 (4.5-11.0) K/mm3 RBC 5.24 H (3.65-5.03) M/mm3 Hgb 13.5 (10.1-14.3) gm/dl Hct 42.2 (30.3-42.9) % MCV 81 (79-97) fl MCH 26 L (28-32) pg MCHC 32 (30-34) % RDW 16.8 H (13.2-15.2) % Plt Count 198 (140-440) K/mm3 Lymph % (Auto) 27.3 (13.4-35.0) % Richardson % (Auto) 7.3 (0.0-7.3) % Eos % (Auto) 1.9 (0.0-4.3) % Baso % (Auto) 0.5 (0.0-1.8) % Lymph # 1.8 (1.2-5.4) K/mm3 Richardson # 0.5 (0.0-0.8) K/mm3 Eos # 0.1 (0.0-0.4) K/mm3 Baso # 0.0 (0.0-0.1) K/mm3 Seg Neutrophils % 63.0 (40.0-70.0) % Seg Neutrophils # 4.2 (1.8-7.7) K/mm3 PT 13.9 (12.2-14.9) Sec. INR 1.06 (0.87-1.13) APTT 32.8 (24.2-36.6) Sec. Thrombin Time 16.4 (15.1-19.6) Sec. Sodium (137-145) mmol/L Potassium (3.6-5.0) mmol/L Chloride (98-107) mmol/L Carbon Dioxide (22-30) mmol/L Anion Gap mmol/L BUN (7-17) mg/dL Creatinine (0.7-1.2) mg/dL Estimated GFR ml/min BUN/Creatinine Ratio % Glucose (65-100) mg/dL Calcium (8.4-10.2) mg/dL Total Bilirubin (0.1-1.2) mg/dL AST (5-40) units/L ALT (7-56) units/L Alkaline Phosphatase (35-129) units/L Troponin T (0.00-0.029) ng/mL Total Protein (6.3-8.2) g/dL Albumin (3.9-5) g/dL Albumin/Globulin Ratio % Urine Color Straw (Yellow) Urine Turbidity Clear (Clear) Urine pH 6.0 (5.0-7.0) Ur Specific [employer] 1.005 (1.003-1.030) Urine Protein 30 mg/dl (Negative) mg/dL Urine Glucose (UA) Negative (Negative) mg/dL Urine Ketones Negative (Negative) mg/dL Urine Blood Negative (Negative) Urine Nitrite Negative (Negative) Ur Reducing Substances Not Reportable Urine Bilirubin Negative (Negative) Urine Ictotest Not Reportable Urine Urobilinogen 2.0 (<2.0) mg/dL Ur Leukocyte Esterase Negative (Negative) Urine WBC (Auto) < 1.0 (0.0-6.0) /HPF Urine RBC (Auto) 3.0 (0.0-6.0) /HPF U Epithel Cells (Auto) < 1.0 (0-13.0) /HPF Hyaline Casts 1 /LPF 12/18/19 Range/Units 19:40 WBC (4.5-11.0) K/mm3 RBC (3.65-5.03) M/mm3 Hgb (10.1-14.3) gm/dl Hct (30.3-42.9) % MCV (79-97) fl MCH (28-32) pg MCHC (30-34) % RDW (13.2-15.2) % Plt Count (140-440) K/mm3 Lymph % (Auto) (13.4-35.0) % Richardson % (Auto) (0.0-7.3) % Eos % (Auto) (0.0-4.3) % Baso % (Auto) (0.0-1.8) % Lymph # (1.2-5.4) K/mm3 Richardson # (0.0-0.8) K/mm3 Eos # (0.0-0.4) K/mm3 Baso # (0.0-0.1) K/mm3 Seg Neutrophils % (40.0-70.0) % Seg Neutrophils # (1.8-7.7) K/mm3 PT (12.2-14.9) Sec. INR (0.87-1.13) APTT (24.2-36.6) Sec. Thrombin Time (15.1-19.6) Sec. Sodium 139 (137-145) mmol/L Potassium 4.6 (3.6-5.0) mmol/L Chloride 99.6 (98-107) mmol/L Carbon Dioxide 24 (22-30) mmol/L Anion Gap 20 mmol/L BUN 15 (7-17) mg/dL Creatinine 0.8 (0.7-1.2) mg/dL Estimated GFR > 60 ml/min BUN/Creatinine Ratio 19 % Glucose 94 (65-100) mg/dL Calcium 10.0 (8.4-10.2) mg/dL Total Bilirubin 0.40 (0.1-1.2) mg/dL AST 24 (5-40) units/L ALT 17 (7-56) units/L Alkaline Phosphatase 74 (35-129) units/L Troponin T < 0.010 (0.00-0.029) ng/mL Total Protein 8.2 (6.3-8.2) g/dL Albumin 4.4 (3.9-5) g/dL Albumin/Globulin Ratio 1.2 % Urine Color (Yellow) Urine Turbidity (Clear) Urine pH (5.0-7.0) Ur Specific [employer] (1.003-1.030) Urine Protein (Negative) mg/dL Urine Glucose (UA) (Negative) mg/dL Urine Ketones (Negative) mg/dL Urine Blood (Negative) Urine Nitrite (Negative) Ur Reducing Substances Urine Bilirubin (Negative) Urine Ictotest Urine Urobilinogen (<2.0) mg/dL Ur Leukocyte Esterase (Negative) Urine WBC (Auto) (0.0-6.0) /HPF Urine RBC (Auto) (0.0-6.0) /HPF U Epithel Cells (Auto) (0-13.0) /HPF Hyaline Casts /LPF - EKG Data -: EKG Interpreted by [facility] EKG shows normal: sinus rhythm, axis, intervals, QRS complexes, ST-T waves Rate: normal - EKG Data Interpretation: normal EKG - Radiology Data CHEST 2 VIEWS INDICATION / CLINICAL INFORMATION: Chest pain and weakness. COMPARISON: 09/08/2018. FINDINGS: SUPPORT DEVICES: None. HEART / MEDIASTINUM: Median sternotomy. Normal heart size with a left ventr icular configuration. Atherosclerotic calcifications involving aorta without aneurysm. Normal pulm onary vasculature. LUNGS / PLEURA: Mild left basilar subsegmental atelectasis. The lungs are otherw ise clear. No pneumothorax. ADDITIONAL FINDINGS: Moderately elevated left hemidiaphragm is chronic. IMPRESSION: No acute abnormality or significant change. Signer Name: Jarrell Agudelo MD Signed: 12/18/2019 5:30 PM Workstation Name: [id number] ED Disposition Clinical Impression: Acute chest pain Disposition: DC- TO HOME OR SELFCARE Condition: Stable Instructions: Chest Pain (ED), Costochondritis (ED) Referrals: PRIMARY CARE, [Referring] - 3-5 Days <INOCENCIO DOTSON - Last Filed: 12/19/19 00:18> ED Review of Systems ROS: Stated complaint: CP/WEAKNESS Other details as noted in HPI ED Course Vital Signs 12/18/19 12/18/19 12/18/19 16:26 16:40 21:26 Temperature 97.5 F L 97.5 F L Pulse Rate 70 70 75 Respiratory 20 20 10 L Rate Blood Pressure 182/69 182/69 Blood Pressure [Right] O2 Sat by Pulse 97 96 99 Oximetry 12/18/19 12/18/19 12/18/19 21:30 21:46 22:00 Temperature Pulse Rate 66 66 76 Respiratory 14 16 17 Rate Blood Pressure 168/60 155/36 142/53 Blood Pressure [Right] O2 Sat by Pulse 98 98 98 Oximetry 12/18/19 12/18/19 12/18/19 22:10 22:16 22:30 Temperature Pulse Rate 66 65 72 Respiratory 14 15 13 Rate Blood Pressure 197/68 161/57 Blood Pressure 165/61 [Right] O2 Sat by Pulse 96 98 98 Oximetry 12/18/19 23:35 Temperature Pulse Rate 62 Respiratory 16 Rate Blood Pressure Blood Pressure [Right] O2 Sat by Pulse 96 Oximetry ED Medical Decision Making - Lab Data Result diagrams: 12/18/19 19:40 12/18/19 19:40 Critical care attestation.: If time is entered above; I have spent that time in minutes in the direct care of this critically ill patient, excluding procedure time. ED Disposition Is pt being admited?: No Time of Disposition: 00:17
--- NOTE | 2019-12-18 23:53 | Cat Scan Report ---
CTA of the chest with 3D Reconstruction Indication: ,pleuritic chest pain Technique: TECHNIQUE: Axial CT images were obtained through the chest after injection of 100 cc of Omnipaque 350 IV contrast. 3 plane MIP reconstructions were produced. All CT scans at this location are performed using CT dose reduction for ALARA by means of automated exposure control. COMPARISON: CT scan dated 09/11/2018 Automatic exposure control was utilized in an attempt to reduce radiation dose. Findings: Pulmonary arteries: The main pulmonary artery and right and left pulmonary artery branches fill satis factorily with contrast. No pulmonary embolus is seen. Lungs: The lungs are clear. Mediastinum: Heart size is normal. No adenopathy is seen. Aorta: Atherosclerotic calcifications are noted in the thoracic aorta. There is no dissection. There are atherosclerotic calcifications in the upper abdomen as well. Impression: No pulmonary embolus is seen Signer Name: Shai Dillard MD Signed: 12/18/2019 11:49 PM Workstation Name: [id number]
[2019-12-19] MEDS ORDERED: traMADol 50 MG TAB ONE (01:02)
[2019-12-19] MEDS ORDERED: traMADol 50 MG TAB PO ONE (01:03)
[2019-12-19 01:37] VITALS: BP 165/61
== END 2019-12-19 01:36 | disposition home or self-care (01) ==
LOC: ED 16:00
DX: R07.89 Other chest pain (principal); I10 Essential (primary) hypertension; E11.9 Type 2 diabetes mellitus without complications; R93.0 Abnormal findings on diagnostic imaging of skull and head, not elsewhere classified; J45.909 Unspecified asthma, uncomplicated; M19.90 Unspecified osteoarthritis, unspecified site; Z79.899 Other long term (current) drug therapy; Z88.0 Allergy status to penicillin
CPT/HCPCS: 36415; 70450; 71046; 71275; 80053; 81001; 84484; 85025; 85610; 85670; 85730; 93005; 93010; 99285; Q9967

== ENCOUNTER 2019-12-22 23:16 | Emergency (ER) | payer MEDICARE, OTHER ==
[2019-12-22 23:26] VITALS: BP 174/66
--- NOTE | 2019-12-23 00:30 | Emergency Department Report ---
ED General Adult HPI - General Chief complaint: Weakness Stated complaint: SEVERE BODY PAIN HEADACHE Time Seen by Provider: 12/23/19 00:23 Source: patient, family Mode of arrival: Wheelchair Limitations: Physical Limitation - History of Present Illness Initial comments: cc: "I'm in pain." Mrs. Singer is an 84 yo female with hx of HTN, DM, GERD, TIA, retinal disease who presents with right shoulder pain, neck pain, elbow knee and wrist pain. She has had pain in her joints for several years. Hx of compression fracture in the back. No recent trauma. Has been under the care of pain management in the past. Pain management was stopped for concerns of polypharmacy. Recently seen by my colleague. Prescribed 7 tabs of ultram. -: Gradual, days(s) (several) Location: left, right, upper extremity, lower extremity Quality: aching Consistency: constant Improves with: none Worsens with: none Associated Symptoms: denies other symptoms - Related Data Home Medications Medication Instructions Recorded Confirmed Last Taken Amlodipine Besylate [Norvasc] 5 mg PO DAILY 07/20/18 09/11/18 09/08/18 Aspirin [Aspirin EC] 81 mg PO DAILY 07/20/18 09/11/18 09/08/18 Furosemide [Lasix] 20 mg PO DAILY 07/20/18 09/11/18 09/08/18 Gabapentin 300 mg PO Q8HR 07/20/18 09/11/18 09/08/18 Pantoprazole [Protonix TAB] 20 mg PO DAILY 07/20/18 09/11/18 09/08/18 Ranolazine [Ranexa] 500 mg PO BID 07/20/18 09/11/18 Unknown Simvastatin 20 mg PO HS 07/20/18 09/11/18 09/08/18 carvediloL [Coreg] 12.5 mg PO BID 07/20/18 09/11/18 09/08/18 glyBURIDE [Diabeta] 2.5 mg PO DAILY 07/20/18 09/11/18 09/08/18 Previous Rx's Medication Instructions Recorded Last Taken Type traMADoL [Ultram 50 MG tab] 50 mg PO Q4HR PRN #15 tablet 07/20/18 09/08/18 Rx Pravastatin [Pravachol] 40 mg PO QHS tablet 08/18/18 09/08/18 Rx levoFLOXacin [Levaquin TAB] 750 mg PO Q24HR #10 tablet 08/18/18 09/08/18 Rx metroNIDAZOLE [Flagyl TAB] 500 mg PO Q8HR #30 tablet 08/18/18 09/08/18 Rx traMADoL [Ultram 50 MG tab] 50 mg PO Q6HR PRN #14 tablet 09/02/18 09/08/18 Rx PE/Shark Liver/Ccb [Hemorrhoidal 1 each [place] Q6H PRN #30 supp.rect 09/13/18 Unknown Rx 0.25/3/85.5%] HYDROcodone/APAP 5-325 [Francisco 1 each PO Q6HR PRN #12 tablet 05/31/19 Unknown Rx 5-325 mg TAB] Acetaminophen/Codeine [Tylenol 1 tab PO Q6H PRN #12 tab 06/07/19 Unknown Rx /Codeine # 3 tab] Benzonatate [Tessalon Perles] 100 mg PO Q8HR PRN #20 capsule 12/19/19 Unknown Rx traMADoL [Ultram] 50 mg PO Q6HR PRN #7 tablet 12/19/19 Unknown Rx traMADoL [Ultram] 50 mg PO Q6HR PRN #15 tablet 12/23/19 Unknown Rx Allergies Allergy/AdvReac Type Severity Reaction Status Date / Time Penicillins Allergy Unknown Verified 07/20/18 19:28 ED Review of Systems ROS: Stated complaint: SEVERE BODY PAIN HEADACHE Other details as noted in HPI Comment: All other systems reviewed and negative Constitutional: denies: fever, malaise Respiratory: denies: cough, shortness of breath Cardiovascular: denies: chest pain Musculoskeletal: arthralgia Neurological: denies: numbness, paresthesias ED Past Medical Hx - Past Medical History Previous Medical History?: Yes Hx Hypertension: Yes Hx Congestive Heart Failure: No Hx Diabetes: Yes Hx Renal Disease: No Hx Arthritis: Yes Hx Asthma: Yes Additional medical history: "hearing problems" L2 compression fracture/ diverticulitis/diverticulosis - Surgical History Past Surgical History?: Yes Hx Cholecystectomy: Yes Hx Appendectomy: Yes Additional Surgical History: Aortic Valve Replacement. hystertectomy - Social History Smoking Status: Never Smoker Substance Use Type: None - Medications Home Medications: Home Medications Medication Instructions Recorded Confirmed Last Taken Type Amlodipine Besylate [Norvasc] 5 mg PO DAILY 07/20/18 09/11/18 09/08/18 History Aspirin [Aspirin EC] 81 mg PO DAILY 07/20/18 09/11/18 09/08/18 History Furosemide [Lasix] 20 mg PO DAILY 07/20/18 09/11/18 09/08/18 History Gabapentin 300 mg PO Q8HR 07/20/18 09/11/18 09/08/18 History Pantoprazole [Protonix TAB] 20 mg PO DAILY 07/20/18 09/11/18 09/08/18 History Ranolazine [Ranexa] 500 mg PO BID 07/20/18 09/11/18 Unknown History Simvastatin 20 mg PO HS 07/20/18 09/11/18 09/08/18 History carvediloL [Coreg] 12.5 mg PO BID 07/20/18 09/11/18 09/08/18 History glyBURIDE [Diabeta] 2.5 mg PO DAILY 07/20/18 09/11/18 09/08/18 History traMADoL [Ultram 50 MG tab] 50 mg PO Q4HR PRN #15 tablet 07/20/18 09/11/18 09/08/18 Rx Pravastatin [Pravachol] 40 mg PO QHS tablet 08/18/18 09/11/18 09/08/18 Rx levoFLOXacin [Levaquin TAB] 750 mg PO Q24HR #10 tablet 08/18/18 09/11/18 09/08/18 Rx metroNIDAZOLE [Flagyl TAB] 500 mg PO Q8HR #30 tablet 08/18/18 09/11/18 09/08/18 Rx traMADoL [Ultram 50 MG tab] 50 mg PO Q6HR PRN #14 tablet 09/02/18 09/11/18 09/08/18 Rx PE/Shark Liver/Ccb [Hemorrhoidal 1 each [place] Q6H PRN #30 supp.rect 09/13/18 Unknown Rx 0.25/3/85.5%] HYDROcodone/APAP 5-325 [Francisco 1 each PO Q6HR PRN #12 tablet 05/31/19 Unknown Rx 5-325 mg TAB] Acetaminophen/Codeine [Tylenol 1 tab PO Q6H PRN #12 tab 06/07/19 Unknown Rx /Codeine # 3 tab] Benzonatate [Tessalon Perles] 100 mg PO Q8HR PRN #20 capsule 12/19/19 Unknown Rx traMADoL [Ultram] 50 mg PO Q6HR PRN #7 tablet 12/19/19 Unknown Rx traMADoL [Ultram] 50 mg PO Q6HR PRN #15 tablet 12/23/19 Unknown Rx ED Physical Exam - General Limitations: No Limitations General appearance: alert, in no apparent distress, other (smiling talkative appears well, appears younger than stated age) - Head Head exam: Present: atraumatic, normocephalic - Eye Eye exam: Present: normal appearance - ENT ENT exam: Present: mucous membranes moist - Neck Neck exam: Present: normal inspection, full ROM - Respiratory Respiratory exam: Present: normal lung sounds bilaterally. Absent: respiratory distress, wheezes, rales, rhonchi - Cardiovascular Cardiovascular Exam: Present: regular rate, normal rhythm, normal heart sounds. Absent: systolic murmur, diastolic murmur, rubs, gallop - GI/Abdominal GI/Abdominal exam: Present: soft, normal bowel sounds. Absent: distended, tenderness, guarding, rebound - Extremities Exam Extremities exam: Present: other (right shoulder FROM right elbow FROM right wrist FROM bilateral knee no erythema or tenderness) - Neurological Exam Neurological exam: Present: alert, oriented X3 - Psychiatric Psychiatric exam: Present: normal affect, normal mood - Skin Skin exam: Present: warm, dry, intact, normal color. Absent: rash ED Course Vital Signs 12/22/19 12/23/19 23:24 00:32 Temperature 98.5 F Pulse Rate 88 90 Respiratory 16 19 Rate Blood Pressure 174/66 O2 Sat by Pulse 97 Oximetry ED Medical Decision Making - Medical Decision Making Mrs. Singer presents with chronic diffuse pain in her joints with hx of arthritis and compression fx. I do not detect an acute medical condition at this time such as fracture, gouty or septic arthropathy. I am concerned that Mrs. Singer will need fdc pain management. She has seen a pain specialist locally. I have encouraged f/u with this specialist and her PMD. Critical care attestation.: If time is entered above; I have spent that time in minutes in the direct care of this critically ill patient, excluding procedure time. ED Disposition Clinical Impression: Joint pain Disposition: DC-01 TO HOME OR SELFCARE Is pt being admited?: No Does the pt Need Aspirin: No Condition: Stable Prescriptions: traMADoL [Ultram] 50 mg PO Q6HR PRN #15 tablet PRN Reason: Pain Referrals: DEANA VICTORIA [Other] - [facility]
[2019-12-23] MEDS ORDERED: HYDROcodone/ACETAMINOPHEN 5-325 MG TAB PO STA (01:01)
== END 2019-12-23 01:20 | disposition home or self-care (01) ==
LOC: ED 23:16
DX: M25.511 Pain in right shoulder (principal); M25.531 Pain in right wrist; I10 Essential (primary) hypertension; E11.9 Type 2 diabetes mellitus without complications; M19.90 Unspecified osteoarthritis, unspecified site; J45.909 Unspecified asthma, uncomplicated; Z90.49 Acquired absence of other specified parts of digestive tract; Z90.710 Acquired absence of both cervix and uterus; Z98.890 Other specified postprocedural states; Z79.82 Long term (current) use of aspirin; Z79.899 Other long term (current) drug therapy; Z88.0 Allergy status to penicillin

== ENCOUNTER 2019-12-31 21:27 | Emergency (ER) | payer MEDICARE, OTHER ==
--- NOTE | 2019-12-31 21:41 | Event Note ---
ED Screening Note Date of service: 12/31/19 Time: 21:39 ED Screening Note: Pt c/o chest pain and chronic generalized body aches Pt also seeking [facility] placement This initial assessment/diagnostic orders/clinical plan/treatment(s) is/are subject to change based on patients health status, clinical progression and re- assessment by fellow clinical providers in the ED. Further treatment and workup at subsequent clinical providers discretion. Patient/guardian urged not to elope from the ED as their condition may be serious if not clinically assessed and managed. Initial orders include: labs CXR
--- NOTE | 2019-12-31 22:30 | XRay Report ---
CHEST 1 VIEW INDICATION / CLINICAL INFORMATION: Chest Pain. COMPARISON: None available. FINDINGS: SUPPORT DEVICES: None. HEART / MEDIASTINUM: No significant abnormality. LUNGS / PLEURA: No significant pulmonary or pleural abnormality. No pneumothorax. Elevated left hemid iaphragm. ADDITIONAL FINDINGS: No significant additional findings. IMPRESSION: 1. No acute findings. Signer Name: Hardik Bell MD Signed: 12/31/2019 10:26 PM Workstation Name: [id number]
[2019-12-31 22:57] LABS: Red Blood Count 5.11 M/mm3 (3.65-5.03)
[2019-12-31 22:58] LABS: Basophils % (Auto) 0.5 % (0.0-1.8); Eosinophils # (Auto) 0.1 K/mm3 (0.0-0.4); Eosinophils % (Auto) 1.5 % (0.0-4.3); Hematocrit 41.3 % (30.3-42.9); Hemoglobin 13.1 gm/dl (10.1-14.3); Lymphocytes # (Auto) 1.6 K/mm3 (1.2-5.4); Lymphocytes % (Auto) 24.7 % (13.4-35.0); Mean Corpuscular HGB Conc 32 % (30-34); Mean Corpuscular Volume 81 fl (79-97); Monocytes # (Auto) 0.5 K/mm3 (0.0-0.8); Monocytes % (Auto) 7.6 % (0.0-7.3); Platelet Count 196 K/mm3 (140-440); Red Cell Distribution Width 16.9 % (13.2-15.2)
[2019-12-31 23:18] LABS: BUN/Creatinine Ratio 28; Blood Urea Nitrogen 22 mg/dL (7-17); Calcium 9.7 mg/dL (8.4-10.2); Hemolysis Index 3
[2020-01-01] MEDS ORDERED: ACETAMINOPHEN 500 MG TAB PO ONE (00:32)
--- NOTE | 2020-01-01 00:34 | Emergency Department Report ---
ED General Adult HPI - General Chief complaint: Pain General Stated complaint: PAIN ALL OVER Time Seen by Provider: 12/31/19 21:38 Source: patient, family, RN notes reviewed, old records reviewed Mode of arrival: Wheelchair Limitations: Physical Limitation - History of Present Illness Initial comments: The patient is an 84-year-old female. The patient is accompanied by her nephew/family member, Mr. Aminta Basurto; [phone] Her primary care doctor is Dr. Montilla. She has outpatient pain specialist, Drs. Gandara, and Dr. Wilson The patient has been seen multiple times at this hospital within the last month for nonspecific arthritic pain, and chest pain. From the end of November through today, she was seen on November 21, December 18. She had multiple negative troponins on December 18, and a negative CT scan of the chest for pulmonary embolism, dissection. The patient presents to the ER with multiple complaints. Her first complaint is right sided shoulder pain that moves down the right upper extremity, and right- sided chest pain, constant for the past few weeks. This pain has not gotten any better, and is not gotten any worse. The pain increases with palpation and range of motion. Decreases with rest. There is no cough. There is no vomiting. There is no diaphoresis. There is no new exertional shortness of breath. Her second complaint is chronic polyarthritis pain. She was prescribed tramadol, which did not really help her pain. The patient has a walker and cane at home, and at the moment, she indicates that she does not have a home health aide. As per her nephew, she has had a home health aide in the past. The patient nephew indicates that he is not able to care for the patient himself, and he is feeling overwhelmed. He needs assistance with helping to care for the patient. He is interested in a jail. As of yet, he has not followed up with the patient's primary care doctor to inquire about what resources she may be entitled to. 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 Location: chest, right, upper extremity, lower extremity Radiation: other Quality: other Consistency: other Improves with: other Worsens with: other Associated Symptoms: other - Related Data Home Medications Medication Instructions Recorded Confirmed Last Taken Amlodipine Besylate [Norvasc] 5 mg PO DAILY 07/20/18 09/11/18 09/08/18 Aspirin [Aspirin EC] 81 mg PO DAILY 07/20/18 09/11/18 09/08/18 Furosemide [Lasix] 20 mg PO DAILY 07/20/18 09/11/18 09/08/18 Gabapentin 300 mg PO Q8HR 07/20/18 09/11/18 09/08/18 Pantoprazole [Protonix TAB] 20 mg PO DAILY 07/20/18 09/11/18 09/08/18 Ranolazine [Ranexa] 500 mg PO BID 07/20/18 09/11/18 Unknown Simvastatin 20 mg PO HS 07/20/18 09/11/18 09/08/18 carvediloL [Coreg] 12.5 mg PO BID 07/20/18 09/11/18 09/08/18 glyBURIDE [Diabeta] 2.5 mg PO DAILY 07/20/18 09/11/18 09/08/18 Previous Rx's Medication Instructions Recorded Last Taken Type traMADoL [Ultram 50 MG tab] 50 mg PO Q4HR PRN #15 tablet 07/20/18 09/08/18 Rx Pravastatin [Pravachol] 40 mg PO QHS tablet 08/18/18 09/08/18 Rx levoFLOXacin [Levaquin TAB] 750 mg PO Q24HR #10 tablet 08/18/18 09/08/18 Rx metroNIDAZOLE [Flagyl TAB] 500 mg PO Q8HR #30 tablet 08/18/18 09/08/18 Rx traMADoL [Ultram 50 MG tab] 50 mg PO Q6HR PRN #14 tablet 09/02/18 09/08/18 Rx PE/Shark Liver/Ccb [Hemorrhoidal 1 each MO Q6H PRN #30 supp.rect 09/13/18 Unknown Rx 0.25/3/85.5%] HYDROcodone/APAP 5-325 [Gepp 1 each PO Q6HR PRN #12 tablet 05/31/19 Unknown Rx 5-325 mg TAB] Acetaminophen/Codeine [Tylenol 1 tab PO Q6H PRN #12 tab 06/07/19 Unknown Rx /Codeine # 3 tab] Benzonatate [Tessalon Perles] 100 mg PO Q8HR PRN #20 capsule 12/19/19 Unknown Rx traMADoL [Ultram] 50 mg PO Q6HR PRN #7 tablet 12/19/19 Unknown Rx traMADoL [Ultram] 50 mg PO Q6HR PRN #15 tablet 12/23/19 Unknown Rx Nitrofurantoin Navarro/M-Cryst 100 mg PO Q12HR #14 capsule 01/01/20 Unknown Rx [Macrobid CAP] Allergies Allergy/AdvReac Type Severity Reaction Status Date / Time Penicillins Allergy Unknown Verified 07/20/18 19:28 ED Review of Systems ROS: Stated complaint: PAIN ALL OVER Other details as noted in HPI Constitutional: see HPI Eyes: as per HPI ENT: as per HPI Respiratory: see HPI Cardiovascular: as per HPI Endocrine: see HPI Gastrointestinal: as per HPI Genitourinary: as per HPI Musculoskeletal: as per HPI Skin: as per HPI Neurological: as per HPI Psychiatric: as per HPI Hematological/Lymphatic: as per HPI ED Past Medical Hx - Past Medical History Previous Medical History?: Yes Hx Hypertension: Yes Hx Congestive Heart Failure: No Hx Diabetes: Yes Hx Renal Disease: No Hx Arthritis: Yes Hx Asthma: Yes Additional medical history: "hearing problems" L2 compression fracture/ diverticulitis/diverticulosis - Surgical History Past Surgical History?: Yes Hx Cholecystectomy: Yes Hx Appendectomy: Yes Additional Surgical History: Aortic Valve Replacement. hystertectomy, Right Carotid Occlusion - Social History Smoking Status: Never Smoker Substance Use Type: Alcohol - Medications Home Medications: Home Medications Medication Instructions Recorded Confirmed Last Taken Type Amlodipine Besylate [Norvasc] 5 mg PO DAILY 07/20/18 09/11/18 09/08/18 History Aspirin [Aspirin EC] 81 mg PO DAILY 07/20/18 09/11/18 09/08/18 History Furosemide [Lasix] 20 mg PO DAILY 07/20/18 09/11/18 09/08/18 History Gabapentin 300 mg PO Q8HR 07/20/18 09/11/18 09/08/18 History Pantoprazole [Protonix TAB] 20 mg PO DAILY 07/20/18 09/11/18 09/08/18 History Ranolazine [Ranexa] 500 mg PO BID 07/20/18 09/11/18 Unknown History Simvastatin 20 mg PO HS 07/20/18 09/11/18 09/08/18 History carvediloL [Coreg] 12.5 mg PO BID 07/20/18 09/11/18 09/08/18 History glyBURIDE [Diabeta] 2.5 mg PO DAILY 07/20/18 09/11/18 09/08/18 History traMADoL [Ultram 50 MG tab] 50 mg PO Q4HR PRN #15 tablet 07/20/18 09/11/18 09/08/18 Rx Pravastatin [Pravachol] 40 mg PO QHS tablet 08/18/18 09/11/18 09/08/18 Rx levoFLOXacin [Levaquin TAB] 750 mg PO Q24HR #10 tablet 08/18/18 09/11/18 09/08/18 Rx metroNIDAZOLE [Flagyl TAB] 500 mg PO Q8HR #30 tablet 08/18/18 09/11/18 09/08/18 Rx traMADoL [Ultram 50 MG tab] 50 mg PO Q6HR PRN #14 tablet 09/02/18 09/11/18 09/08/18 Rx PE/Shark Liver/Ccb [Hemorrhoidal 1 each MO Q6H PRN #30 supp.rect 09/13/18 Unknown Rx 0.25/3/85.5%] HYDROcodone/APAP 5-325 [Gepp 1 each PO Q6HR PRN #12 tablet 05/31/19 Unknown Rx 5-325 mg TAB] Acetaminophen/Codeine [Tylenol 1 tab PO Q6H PRN #12 tab 06/07/19 Unknown Rx /Codeine # 3 tab] Benzonatate [Tessalon Perles] 100 mg PO Q8HR PRN #20 capsule 12/19/19 Unknown Rx traMADoL [Ultram] 50 mg PO Q6HR PRN #7 tablet 12/19/19 Unknown Rx traMADoL [Ultram] 50 mg PO Q6HR PRN #15 tablet 12/23/19 Unknown Rx Nitrofurantoin Navarro/M-Cryst 100 mg PO Q12HR #14 capsule 01/01/20 Unknown Rx [Macrobid CAP] ED Physical Exam - General Limitations: Physical Limitation General appearance: alert, in no apparent distress, obese - Head Head exam: Present: atraumatic, normocephalic - Eye Eye exam: Present: normal appearance, EOMI. Absent: nystagmus - ENT ENT exam: Present: normal exam, normal orophraynx, mucous membranes moist, normal external ear exam - Neck Neck exam: Present: normal inspection, full ROM. Absent: tenderness, meningismus - Respiratory Respiratory exam: Present: normal lung sounds bilaterally. Absent: respiratory distress - Cardiovascular Cardiovascular Exam: Present: regular rate, normal rhythm, normal heart sounds. Absent: bradycardia, tachycardia, irregular rhythm, systolic murmur, diastolic murmur, rubs, gallop - GI/Abdominal GI/Abdominal exam: Present: soft, normal bowel sounds. Absent: distended, te nderness, guarding, rigid, pulsatile mass - Extremities Exam Extremities exam: Present: normal inspection, full ROM, tenderness (Active and passive range of motion intact in the bilateral shoulders, elbows, knees, hips and ankles. Patient does have mild reproducible tenderness in most of the aforementioned joints, without redness, pus or streaking. No significant effusions are noted.), other (2+ pulses noted in the bilateral upper and lower extremities. There is no palpable cord. negative Homans sign. Muscular compartments are soft. The pelvis is stable.). Absent: pedal edema, calf tenderness - Back Exam Back exam: Present: normal inspection, full ROM. Absent: tenderness, CVA tenderness (R), CVA tenderness (L), paraspinal tenderness, vertebral tenderness - Neurological Exam Neurological exam: Present: alert, other (There is no facial droop. The tongue is midline. Extraocular movements are intact bilaterally. There is 5 out of 5 strength in bilateral upper and lower extremities. Sensation is intact to light touch bilateral upper and lower extremities. ) - Psychiatric Psychiatric exam: Present: normal affect, normal mood - Skin Skin exam: Present: warm, dry, intact, normal color. Absent: rash ED Course Vital Signs 12/31/19 01/01/20 01/01/20 21:33 01:41 01:48 Temperature 98.1 F Pulse Rate 70 74 Respiratory 18 18 18 Rate Blood Pressure 150/62 Blood Pressure 153/59 [Left] O2 Sat by Pulse 97 98 Oximetry - Reevaluation(s) Reevaluation #1: 01/01/20 01:18 Differential diagnosis, including but not limited to: Deconditioning, encounter for social reasons, polyarthritis, chronic chest pain, pneumonia, urinary tract infection, atypical chest pain Assessment and plan: 84-year-old female brought to the hospital by her family member mostly for social reasons. She is afebrile with reassuring vital signs. Her physical examination today is unremarkable, and is age-appropriate for her age and medical comorbidities. She recently had a cardiac re-stratification in the emergency room, negative CT scan of the chest, and her EKG today is unchanged, x2, and unchanged from her prior EKG. Her advanced age and cardiovascular risk factor profile are reviewed and appreciated, however, given chronicity of symptoms, constant complaint of weeks of pain, this is very unlikely to be acute coronary syndrome. She is also not currently tachycardic, tachypneic or hypoxic, I do not suspect a pulmonary embolism at this time, and she recently had a CT scan of the chest which was negative for acute disease. Urinalysis is pending at this time. A case manag ement consult is also ordered. Discussed this extensively with the patient's nephew who verbalized understanding. We also discussed that I would not prescribe narcotic therapy or opioids, and that the patient could participate in physical therapy, and take acetaminophen [id number], and she may also attempt complementary therapy, such as massage, acupuncture. Reevaluation #2: 01/01/20 02:11 Patient resting comfortably, and in no acute distress. Urinalysis suggestive of possible urinary tract infection. Macrobid will be ordered. Patient resting comfortably, troponin negative x2, EKG unchanged x2, vital signs unremarkable. Patient will be discharged. ED Medical Decision Making - Lab Data Result diagrams: 12/31/19 22:24 12/31/19 22:24 Vital Signs 12/31/19 21:33 Temperature 98.1 F Pulse Rate 70 Respiratory 18 Rate Blood Pressure 150/62 O2 Sat by Pulse 97 Oximetry Lab Results 12/31/19 12/31/19 Range/Units 22:24 22:24 WBC 6.6 (4.5-11.0) K/mm3 RBC 5.11 H (3.65-5.03) M/mm3 Hgb 13.1 (10.1-14.3) gm/dl Hct 41.3 (30.3-42.9) % MCV 81 (79-97) fl MCH 26 L (28-32) pg MCHC 32 (30-34) % RDW 16.9 H (13.2-15.2) % Plt Count 196 (140-440) K/mm3 Lymph % (Auto) 24.7 (13.4-35.0) % Navarro % (Auto) 7.6 H (0.0-7.3) % Eos % (Auto) 1.5 (0.0-4.3) % Baso % (Auto) 0.5 (0.0-1.8) % Lymph # 1.6 (1.2-5.4) K/mm3 Navarro # 0.5 (0.0-0.8) K/mm3 Eos # 0.1 (0.0-0.4) K/mm3 Baso # 0.0 (0.0-0.1) K/mm3 Seg Neutrophils % 65.7 (40.0-70.0) % Seg Neutrophils # 4.3 (1.8-7.7) K/mm3 Sodium 140 (137-145) mmol/L Potassium 4.2 (3.6-5.0) mmol/L Chloride 103.1 (98-107) mmol/L Carbon Dioxide 22 (22-30) mmol/L Anion Gap 19 mmol/L BUN 22 H (7-17) mg/dL Creatinine 0.8 (0.7-1.2) mg/dL Estimated GFR > 60 ml/min BUN/Creatinine Ratio 28 % Glucose 132 H (65-100) mg/dL Calcium 9.7 (8.4-10.2) mg/dL Troponin T < 0.010 (0.00-0.029) ng/mL - EKG Data -: EKG Interpreted by Al EKG shows normal: sinus rhythm Rate: normal - EKG Data When compared to previous EKG there are: no significant change 01/01/20 01:13 EKG #1 today appears to be unchanged from prior EKG. This is a sinus rhythm, 73 bpm, normal axis, prolonged MO interval, low voltage, motion artifact. Not a STEMI. Unchanged from prior EKG from December 18, 2019 - Radiology Data Radiology results: report reviewed, image reviewed Print Report Referring Physician: CHAD LEVINE Patient Name: JONAH RAY Date of : 1935 Sex: Female Report Date: 2019-12-31 Report Status: Finalized Findings [facility] [address] [place] [address] XRay Report Signed Patient: JONAH RAY MR#: [id number] 162 : 1935 Acct:[id number] Age/Sex: 84 / F ADM Date: 12/31/19 Loc: ED Attending Dr: Ordering Physician: CHAD LEVINE Date of Service: 12/31/19 Procedure(s): XR chest 1V ap Accession Number(s): [id number] cc: CHAD LEVINE Fluoro Time In Minutes: CHEST 1 VIEW INDICATION / CLINICAL INFORMATION: Chest Pain. COMPARISON: None available. FINDINGS: SUPPORT DEVICES: None. HEART / MEDIASTINUM: No significant abnormality. LUNGS / PLEURA: No significant pulmonary or pleural abnormality. No pneumothorax. Elevated left hemidiaphragm. ADDITIONAL FINDINGS: No significant additional findings. IMPRESSION: 1. No acute findings. Signer Name: Hardik Bell MD Signed: 12/31/2019 10:26 PM Workstation Name: [id number] Transcribed By: BC Dictated By: Hardik Bell MD Electronically Authenticated By: Hardik Bell MD Signed Date/Time: 12/31/192225 DD/ 24 Print Report Referring Physician: TRACIE BASURTO Patient Name: JOANH RAY Date of : 1935 Sex: Female Report Date: 2019-12-18 Report Status: Finalized Findings [address] [address] Cat Scan Report Signed Patient: JONAH RAY MR#: [id number] 162 : 1935 Acct:[id number] Age/Sex: 84 / F ADM Date: 12/18/19 Loc: ED Attending Dr: Ordering Physician: TRACIE BASURTO MD Date of Service: 12/18/19 Procedure(s): CT angio chest Accession Number(s): [id number] cc: TRACIE BASURTO MD CTA of the chest with 3D Reconstruction Indication: ,pleuritic chest pain Technique: TECHNIQUE: Axial CT images were obtained through the chest after injection of 100 cc of Omnipaque 350 IV contrast. 3 plane MIP reconstructions were produced. All CT scans at this location are performed using CT dose reduction for ALARA by means of automated exposure control. COMPARISON: CT scan dated 09/11/2018 Automatic exposure control was utilized in an attempt to reduce radiation dose. Findings: Pulmonary arteries: The main pulmonary artery and right and left pulmonary artery branches fill satisfactorily with contrast. No pulmonary embolus is seen. Lungs: The lungs are clear. Mediastinum: Heart size is normal. No adenopathy is seen. Aorta: Atherosclerotic calcifications are noted in the thoracic aorta. There is no dissection. There are atherosclerotic calcifications in the upper abdomen as well. Impression: No pulmonary embolus is seen Signer Name: Shai Dillard MD Signed: 12/18/2019 11:49 PM Workstation Name: [id number] Transcribed By: SS Dictated By: Shai Dillard MD Electronically Authenticated By: Shai Dillard MD Signed Date/Time: 12/18/192348 DD/ 43 TD/TT: Print Report Referring Physician: TERESA BASURTO Patient Name: JONAH RAY Date of : 1935 Sex: Female Report Date: 2019-12-18 Report Status: Finalized Findings [facility] [address] [place] [address] XRay Report Signed Patient: JONAH RAY MR#: [id number] 162 : 1935 Acct:[id number] Age/Sex: 84 / F ADM Date: 12/18/19 Loc: ED Attending Dr: Ordering Physician: Teresa Lim MD Date of Service: 12/18/19 Procedure(s): XR chest routine 2V Accession Number(s): [id number] cc: Teresa Lim MD Fluoro Time In Minutes: CHEST 2 VIEWS INDICATION / CLINICAL INFORMATION: Chest pain and weakness. COMPARISON: 09/08/2018. FINDINGS: SUPPORT DEVICES: None. HEART / MEDIASTINUM: Median sternotomy. Normal heart size with a left ve ntricular configuration. Atherosclerotic calcifications involving aorta without aneurysm. Normal pulmonary vasculature. LUNGS / PLEURA: Mild left basilar subsegmental atelectasis. The lungs are otherwise clear. No pneumothorax. ADDITIONAL FINDINGS: Moderately elevated left hemidiaphragm is chronic. IMPRESSION: No acute abnormality or significant change. Signer Name: Jarrell Agudelo MD Signed: 12/18/2019 5:30 PM Workstation Name: [id number] Transcribed By: RT Dictated By: Jarrell Agudelo MD Electronically Authenticated By: Jarrell Agudelo MD Signed Date/Time: 12/18/191729 DD/ 27 TD/TT: Critical care attestation.: If time is entered above; I have spent that time in minutes in the direct care of this critically ill patient, excluding procedure time. ED Disposition Clinical Impression: Polyarthritis, Debility, Case management patient, Dysuria Joint pain Qualifiers: Joint pain location: unspecified Qualified Code(s): M25.50 - Pain in unspecified joint Disposition: DC- TO HOME OR SELFCARE Is pt being admited?: No Does the pt Need Aspirin: No Condition: Stable Additional Instructions: Continue outpatient medications. Rest, avoid heavy lifting and strenuous physical activity. Patient may take Tylenol mokk-gtq-liznghx, 650 mg, every 4-6 hours as needed for pain, alternating with ice packs and heat packs. The patient may also follow-up with her outpatient primary care doctor or have her primary care doctor or insurance company evaluate her for suitability for home physical therapy, home health aide, or jail placement. We recommend that the patient or her nephew get in touch with her primary care doctor soon as possible and discuss the possibility of home health evaluation, home health aide, or jail placement. In addition, patient or her family may contact her private insurance company to discuss this as well. We also recommend that the patient follow-up with her primary care doctor or her drier take off tender within the next 3 to 5 days for her complaint of chest pain for 2 weeks. In addition, a case management consultation was placed in the computer, and they should be reaching out to the family within the next 24 hours at the phone number that the patient's nephew provided. Please return to the emergency room right away with new, worsened or different symptoms, or symptoms not present on the initial emergency room evaluation. Cultures were sent today, and results will be available in the next 3 to 5 days. Please have your primary care doctor contact the medical records department to obtain culture results. Patient may also pursue complementary therapy for her joint pain, including massage, acupuncture, and aquatic therapy as tolerated. Referrals: MONTILLA,BEREAVAL SHAMAROL, MD [Referring] - 3-5 Days [facility] [Provider Group] - 3-5 Days
[2020-01-01 01:59] LABS: Bacteria,Urine 1+ /HPF (Negative); Bilirubin,Urine NEG (Negative); Blood,Urine NEG (Negative); Color,Urine Yellow (Yellow); Protein,Urine <15 mg/dL mg/dL (Negative)
[2020-01-01 02:45] VITALS: BP 158/76
== END 2020-01-01 02:45 | disposition home or self-care (01) ==
LOC: ED 21:27
DX: M13.0 Polyarthritis, unspecified (principal); R30.0 Dysuria; R53.81 Other malaise; I10 Essential (primary) hypertension; E11.9 Type 2 diabetes mellitus without complications; J45.909 Unspecified asthma, uncomplicated; Z79.899 Other long term (current) drug therapy; Z88.0 Allergy status to penicillin; Z79.82 Long term (current) use of aspirin; Z90.710 Acquired absence of both cervix and uterus; Z90.49 Acquired absence of other specified parts of digestive tract; Z98.890 Other specified postprocedural states
CPT/HCPCS: 36415; 71045; 80048; 81001; 82550; 83735; 84484; 85025; 87086; 93005; 93010

== ENCOUNTER 2020-04-09 11:47 | Emergency (ER) | payer MEDICARE, OTHER ==
--- NOTE | 2020-04-09 12:03 | Event Note ---
ED Screening Note Date of service: 04/09/20 Time: 12:01 ED Screening Note: 84-year-old female presents the ED today status post fall today while at home. Patient complaining of headache. Patient states unsure if she hit her head but still consciousness. CERV: no neck pain or spinal tenderness Head: no contusions noted This initial assessment/diagnostic orders/clinical plan/treatment(s) is/are subject to change based on patients health status, clinical progression and re- assessment by fellow clinical providers in the ED. Further treatment and workup at subsequent clinical providers discretion. Patient/guardian urged not to elope from the ED as their condition may be serious if not clinically assessed and managed. Initial orders include: CT scan main side eval
[2020-04-09 13:43] LABS: Bilirubin,Urine NEG (Negative); Blood,Urine NEG (Negative); Color,Urine Yellow (Yellow); Protein,Urine <15 mg/dL mg/dL (Negative); Urobilinogen,Urine < 2.0 mg/dL (<2.0); WBC,Urine < 1.0 /HPF (0.0-6.0)
--- NOTE | 2020-04-09 13:50 | Cat Scan Report ---
CT HEAD WITHOUT CONTRAST INDICATION / CLINICAL INFORMATION: headache s/p fall. TECHNIQUE: Axial imaging performed from the skull apex through the skull base without the use of cont rast. Sagittal and coronal reformatted images. All CT scans at this location are performed using CT dose reduction for ALARA by means of automated exposure control. COMPARISON: 12/18/2019 FINDINGS: CEREBRAL PARENCHYMA: Age appropriate volume loss and mild chronic white matter changes are again note d. 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 No acute parenchymal abnormality is appreciated. HEMORRHAGE: None. EXTRA-AXIAL SPACES: Normal in size and morphology for the patient's age. VENTRICULAR SYSTEM: Normal in size and morphology for the patient's age. MIDLINE SHIFT OR HERNIATION: None. CEREBELLUM / BRAINSTEM: No significant abnormality. CALVARIUM: No significant abnormality. ORBITS: Normal as visualized. PARANASAL SINUSES / MASTOID AIR CELLS: Normal as visualized. SOFT TISSUES of HEAD: No significant abnormality. ADDITIONAL FINDINGS: None. IMPRESSION: No acute intracranial abnormality. No change since 12/18/2019. Signer Name: Rahat Fitch Jr, MD Signed: 04/09/2020 1:46 PM Workstation Name: [id number]
--- NOTE | 2020-04-09 13:59 | Cat Scan Report ---
CT ABDOMEN AND PELVIS WITHOUT CONTRAST HISTORY: lower abd pain, back pain s/p fall COMPARISON: 09/09/2018 TECHNIQUE: Axial CT images were obtained through the abdomen and pelvis without IV contrast. Sagittal and coronal reformatted images. All CT scans at this location are performed using CT dose reduction for ALARA by means of automated exposure control. FINDINGS: CT ABDOMEN: Lung Bases: Clear. Liver: No significant abnormality. Biliary: Cholecystectomy. Spleen: No significant abnormality. Unenlarged. Pancreas: No significant abnormality. Adrenals: No significant abnormality. Kidneys: The kidneys are normal size, contour and position. A 3 mm calyceal stone is noted in the mid right kidney. No hydronephrosis. Lymphatics: No lymphadenopathy. Vasculature: Moderate diffuse aortic and iliac calcifications. No aneurysm. Bowel/Peritoneum: Mild diverticulosis of the distal colon is identified. No evidence for bowel obstru ction or focal inflammation. No free air. No free fluid. The appendix is not identified. CT PELVIS: : Hysterectomy. The bladder and distal ureters are unremarkable. Osseous Structures: Osteopenia. Severe multilevel thoracolumbar spondylosis. Chronic L2 superior endp late fracture is unchanged. No acute osseous injury is appreciated. Additional Findings: Small umbilical hernia containing fat. IMPRESSION: No evidence for acute injury in the abdomen or pelvis. 3 mm right renal stone, nonobstructing. Diverticulosis of the distal colon. Osteopenia and advanced degenerative changes in the thoracolumbar spine. Surgical changes as described. Signer Name: Rahat Fitch Jr, MD Signed: 04/09/2020 1:55 PM Workstation Name: [id number]
[2020-04-09 14:04] LABS: Basophils # (Auto) 0.1 K/mm3 (0.0-0.1); Basophils % (Auto) 0.7 % (0.0-1.8); Eosinophils # (Auto) 0.2 K/mm3 (0.0-0.4); Eosinophils % (Auto) 2.1 % (0.0-4.3); Hematocrit 38.9 % (30.3-42.9); Hemoglobin 12.4 gm/dl (10.1-14.3); Lymphocytes # (Auto) 1.6 K/mm3 (1.2-5.4); Lymphocytes % (Auto) 18.8 % (13.4-35.0); Mean Corpuscular HGB Conc 32 % (30-34); Mean Corpuscular Volume 82 fl (79-97); Monocytes # (Auto) 0.6 K/mm3 (0.0-0.8); Monocytes % (Auto) 7.4 % (0.0-7.3); Platelet Count 166 K/mm3 (140-440); Red Blood Count 4.76 M/mm3 (3.65-5.03); Red Cell Distribution Width 16.5 % (13.2-15.2)
[2020-04-09 14:23] LABS: BUN/Creatinine Ratio 21; Blood Urea Nitrogen 19 mg/dL (7-17); Calcium 9.1 mg/dL (8.4-10.2); Hemolysis Index 7
--- NOTE | 2020-04-09 14:29 | Cat Scan Report ---
Exam: CT cervical spine History: "Joint hypertrophy at C4-C5, C5-C6 and C6-C7 disc levels resulting in foraminal stenoses bi laterally; Technique: Contiguous thin cut axial images obtained through the cervical spine. Sagittal and wills l reconstructions performed by the technologist. All CT scans at this location are performed using CT dose reduction for ALARA by means of automated exposure control. Findings: No priors. There is no evidence of fracture or traumatic subluxation. Vertebral bodies are normal in height and alignment. At C3-C4 disc level, bony spur is seen more towards the left side; left neuroforamen is narrowed At C4-C5 disc level, uncovertebral joint hypertrophy on the left side; left neural foramina narrowed At C5-C6 disc level, uncovertebral joint hypertrophy bilaterally both neuroforamina are narrowed At C6-C7 disc level, uncovertebral joint hypertrophy more to the left side; both neuroforamina are na rrowed Calcification in the left carotid bifurcation Surrounding soft tissues are grossly normal. Impression: No signs of acute bony trauma to the cervical spine. Uncovertebral joint hypertrophy at C4-C5, C5-C6 and C6-C7 levels resulting in foraminal stenoses Signer Name: Raheel Smyth MD Signed: 04/09/2020 2:24 PM Workstation Name: [id number]
--- NOTE | 2020-04-09 15:17 | Emergency Department Report ---
ED Fall HPI - General Chief Complaint: Fall Stated Complaint: FALL Time Seen by Provider: 04/09/20 12:15 Source: patient Mode of arrival: Wheelchair Limitations: No Limitations - History of Present Illness Initial Comments: 84-year-old female with a past medical history of asthma, diabetes, hypertension, hearing problems, L2 compression fracture, diverticulitis, cholecystectomy, appendectomy, right carotid artery occlusion, aortic valve replacement and hysterectomy presents to the hospital with complaints of fall while getting out of the bathtub. Patient was taking a bath in her tub chair. While getting out of the tub she fell backwards but cannot recall how she fell. She is not sure if she hit her head. She denies LOC. She complained of he adache and chronic ongoing back pain. Patient had loose stools after arrival to the ED preceded by crampy abdominal pain. She reports increased urinary frequency for the past week with mild dysuria. She denies fever, nausea, vomiting, melena, or hematochezia. Patient has chronic pain to her back and her knees and receives injections to both and is seen by pain management. She chronically walks with a cane and has some difficulty ambulating due to her chronic skeletal pain. - Related Data Home Medications Medication Instructions Recorded Confirmed Last Taken Amlodipine Besylate [Norvasc] 5 mg PO DAILY 07/20/18 09/11/18 09/08/18 Aspirin [Aspirin EC] 81 mg PO DAILY 07/20/18 09/11/18 09/08/18 Furosemide [Lasix] 20 mg PO DAILY 07/20/18 09/11/18 09/08/18 Gabapentin 300 mg PO Q8HR 07/20/18 09/11/18 09/08/18 Pantoprazole [Protonix TAB] 20 mg PO DAILY 07/20/18 09/11/18 09/08/18 Ranolazine [Ranexa] 500 mg PO BID 07/20/18 09/11/18 Unknown Simvastatin 20 mg PO HS 07/20/18 09/11/18 09/08/18 carvediloL [Coreg] 12.5 mg PO BID 07/20/18 09/11/18 09/08/18 glyBURIDE [Diabeta] 2.5 mg PO DAILY 07/20/18 09/11/18 09/08/18 Previous Rx's Medication Instructions Recorded Last Taken Type traMADoL [Ultram 50 MG tab] 50 mg PO Q4HR PRN #15 tablet 07/20/18 09/08/18 Rx Pravastatin [Pravachol] 40 mg PO QHS tablet 08/18/18 09/08/18 Rx levoFLOXacin [Levaquin TAB] 750 mg PO Q24HR #10 tablet 08/18/18 09/08/18 Rx metroNIDAZOLE [Flagyl TAB] 500 mg PO Q8HR #30 tablet 08/18/18 09/08/18 Rx traMADoL [Ultram 50 MG tab] 50 mg PO Q6HR PRN #14 tablet 09/02/18 09/08/18 Rx PE/Shark Liver/Ccb [Hemorrhoidal 1 each TN Q6H PRN #30 supp.rect 09/13/18 Unknown Rx 0.25/3/85.5%] HYDROcodone/APAP 5-325 [[place] 1 each PO Q6HR PRN #12 tablet 05/31/19 Unknown Rx 5-325 mg TAB] Acetaminophen/Codeine [Tylenol 1 tab PO Q6H PRN #12 tab 06/07/19 Unknown Rx /Codeine # 3 tab] Benzonatate [Tessalon Perles] 100 mg PO Q8HR PRN #20 capsule 12/19/19 Unknown Rx traMADoL [Ultram] 50 mg PO Q6HR PRN #7 tablet 12/19/19 Unknown Rx traMADoL [Ultram] 50 mg PO Q6HR PRN #15 tablet 12/23/19 Unknown Rx Nitrofurantoin Thayer/M-Cryst 100 mg PO Q12HR #14 capsule 01/01/20 Unknown Rx [Macrobid CAP] Allergies Allergy/AdvReac Type Severity Reaction Status Date / Time Penicillins Allergy Unknown Verified 07/20/18 19:28 ED Review of Systems ROS: Stated complaint: FALL Other details as noted in HPI Comment: All other systems reviewed and negative ED Past Medical Hx - Past Medical History Hx Hypertension: Yes Hx Congestive Heart Failure: No Hx Diabetes: Yes Hx Renal Disease: No Hx Arthritis: Yes Hx Asthma: Yes Additional medical history: "hearing problems" L2 compression fracture/ diverticulitis/diverticulosis - Surgical History Hx Cholecystectomy: Yes Hx Appendectomy: Yes Additional Surgical History: Aortic Valve Replacement. hystertectomy, Right Carotid Occlusion - Social History Smoking Status: Never Smoker Substance Use Type: None - Medications Home Medications: Home Medications Medication Instructions Recorded Confirmed Last Taken Type Amlodipine Besylate [Norvasc] 5 mg PO DAILY 07/20/18 09/11/18 09/08/18 History Aspirin [Aspirin EC] 81 mg PO DAILY 07/20/18 09/11/18 09/08/18 History Furosemide [Lasix] 20 mg PO DAILY 07/20/18 09/11/18 09/08/18 History Gabapentin 300 mg PO Q8HR 07/20/18 09/11/18 09/08/18 History Pantoprazole [Protonix TAB] 20 mg PO DAILY 07/20/18 09/11/18 09/08/18 History Ranolazine [Ranexa] 500 mg PO BID 07/20/18 09/11/18 Unknown History Simvastatin 20 mg PO HS 07/20/18 09/11/18 09/08/18 History carvediloL [Coreg] 12.5 mg PO BID 07/20/18 09/11/18 09/08/18 History glyBURIDE [Diabeta] 2.5 mg PO DAILY 07/20/18 09/11/18 09/08/18 History traMADoL [Ultram 50 MG tab] 50 mg PO Q4HR PRN #15 tablet 07/20/18 09/11/18 09/08/18 Rx Pravastatin [Pravachol] 40 mg PO QHS tablet 08/18/18 09/11/18 09/08/18 Rx levoFLOXacin [Levaquin TAB] 750 mg PO Q24HR #10 tablet 08/18/18 09/11/18 09/08/18 Rx metroNIDAZOLE [Flagyl TAB] 500 mg PO Q8HR #30 tablet 08/18/18 09/11/18 09/08/18 Rx traMADoL [Ultram 50 MG tab] 50 mg PO Q6HR PRN #14 tablet 09/02/18 09/11/18 09/08/18 Rx PE/Shark Liver/Ccb [Hemorrhoidal 1 each TN Q6H PRN #30 supp.rect 09/13/18 Unknown Rx 0.25/3/85.5%] HYDROcodone/APAP 5-325 [[place] 1 each PO Q6HR PRN #12 tablet 05/31/19 Unknown Rx 5-325 mg TAB] Acetaminophen/Codeine [Tylenol 1 tab PO Q6H PRN #12 tab 06/07/19 Unknown Rx /Codeine # 3 tab] Benzonatate [Tessalon Perles] 100 mg PO Q8HR PRN #20 capsule 12/19/19 Unknown Rx traMADoL [Ultram] 50 mg PO Q6HR PRN #7 tablet 12/19/19 Unknown Rx traMADoL [Ultram] 50 mg PO Q6HR PRN #15 tablet 12/23/19 Unknown Rx Nitrofurantoin Thayer/M-Cryst 100 mg PO Q12HR #14 capsule 01/01/20 Unknown Rx [Macrobid CAP] ED Physical Exam - General Limitations: No Limitations - Other Other exam information: General: No acute distress Head: Atraumatic, no hematoma Eyes: normal appearance ENT: Moist mucous membranes Neck: Normal appearance, no midline tenderness Chest: Clear to auscultation bilaterally CV: Regular rate and rhythm Abdomen: Soft, normal bowel sounds, nontender, nondistended, no rebound or guarding Back: Normal inspection, no midline tenderness, lower back pain with movement Extremity: Normal inspection, full range of motion,, no tenderness to knees Neuro: Alert O x 3, no facial asymmetry, speech clear, no gross motor sensory deficit Psych: Appropriate behavior Skin: No rash ED Course Vital Signs 04/09/20 12:05 Temperature 98.7 F Pulse Rate 70 Respiratory 14 Rate Blood Pressure 146/59 O2 Sat by Pulse 98 Oximetry ED Medical Decision Making - Lab Data Result diagrams: 04/09/20 13:30 04/09/20 13:30 Lab Results 04/09/20 04/09/20 04/09/20 Range/Units 13:30 13:30 Unknown WBC 8.5 (4.5-11.0) K/mm3 RBC 4.76 (3.65-5.03) M/mm3 Hgb 12.4 (10.1-14.3) gm/dl Hct 38.9 (30.3-42.9) % MCV 82 (79-97) fl MCH 26 L (28-32) pg MCHC 32 (30-34) % RDW 16.5 H (13.2-15.2) % Plt Count 166 (140-440) K/mm3 Lymph % (Auto) 18.8 (13.4-35.0) % Thayer % (Auto) 7.4 H (0.0-7.3) % Eos % (Auto) 2.1 (0.0-4.3) % Baso % (Auto) 0.7 (0.0-1.8) % Lymph # 1.6 (1.2-5.4) K/mm3 Thayer # 0.6 (0.0-0.8) K/mm3 Eos # 0.2 (0.0-0.4) K/mm3 Baso # 0.1 (0.0-0.1) K/mm3 Seg Neutrophils % 71.0 H (40.0-70.0) % Seg Neutrophils # 6.1 (1.8-7.7) K/mm3 Sodium 138 (137-145) mmol/L Potassium 3.9 (3.6-5.0) mmol/L Chloride 102.9 (98-107) mmol/L Carbon Dioxide 26 (22-30) mmol/L Anion Gap 13 mmol/L BUN 19 H (7-17) mg/dL Creatinine 0.9 (0.7-1.2) mg/dL Estimated GFR > 60 ml/min BUN/Creatinine Ratio 21 % Glucose 112 H (65-100) mg/dL Calcium 9.1 (8.4-10.2) mg/dL Urine Color Yellow (Yellow) Urine Turbidity Clear (Clear) Urine pH 5.0 (5.0-7.0) Ur Specific [place] 1.009 (1.003-1.030) Urine Protein <15 mg/dl (Negative) mg/dL Urine Glucose (UA) Neg (Negative) mg/dL Urine Ketones Neg (Negative) mg/dL Urine Blood Neg (Negative) Urine Nitrite Neg (Negative) Urine Bilirubin Neg (Negative) Urine Urobilinogen < 2.0 (<2.0) mg/dL Ur Leukocyte Esterase Neg (Negative) Urine WBC (Auto) < 1.0 (0.0-6.0) /HPF Urine RBC (Auto) 1.0 (0.0-6.0) /HPF - Radiology Data Radiology results: report reviewed CT HEAD WITHOUT CONTRAST INDICATION / CLINICAL INFORMATION: headache s/p fall. TECHNIQUE: Axial imaging performed from the skull apex through the skull base without the use of contrast. Sagittal and coronal reformatted images. All CT s cans at this location are performed using CT dose reduction for ALARA by means of automated exposure control. COMPARISON: 12/18/2019 FINDINGS: CEREBRAL PARENCHYMA: Age appropriate volume loss and mild chronic white matter changes are again noted. 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 No acute parenchymal abnormality is appreciated. HEMORRHAGE: None. EXTRA-AXIAL SPACES: Normal in size and morphology for the patient's age. VENTRICULAR SYSTEM: Normal in size and morphology for the patient's age. MIDLINE SHIFT OR HERNIATION: None. CEREBELLUM / BRAINSTEM: No significant abnormality. CALVARIUM: No significant abnormality. ORBITS: Normal as visualized. PARANASAL SINUSES / MASTOID AIR CELLS: Normal as visualized. SOFT TISSUES of HEAD: No significant abnormality. ADDITIONAL FINDINGS: None. IMPRESSION: No acute intracranial abnormality. No change since 12/18/2019. Exam: CT cervical spine History: "Joint hypertrophy at C4-C5, C5-C6 and C6-C7 disc levels resulting in foraminal stenoses bilaterally; Technique: Contiguous thin cut axial images obtained through the cervical spine. Sagittal and coronal reconstructions performed by the technologist. All CT scans at this location are performed using CT dose reduction for ALARA by means of automated exposure control. Findings: No priors. There is no evidence of fracture or traumatic subluxation. Vertebral bodies are normal in height and alignment. At C3-C4 disc level, bony spur is seen more towards the left side; left neuroforamen is narrowed At C4-C5 disc level, uncovertebral joint hypertrophy on the left side; left neural foramina narrowed At C5-C6 disc level, uncovertebral joint hypertrophy bilaterally both neuroforamina are narrowed At C6-C7 disc level, uncovertebral joint hypertrophy more to the left side; both neuroforamina are narrowed Calcification in the left carotid bifurcation Surrounding soft tissues are grossly normal. Impression: No signs of acute bony trauma to the cervical spine. Uncovertebral joint hypertrophy at C4-C5, C5-C6 and C6-C7 levels re sulting in foraminal stenoses CT ABDOMEN AND PELVIS WITHOUT CONTRAST HISTORY: lower abd pain, back pain s/p fall COMPARISON: 09/09/2018 TECHNIQUE: Axial CT images were obtained through the abdomen and pelvis without IV contrast. Sagittal and coronal reformatted images. All CT scans at this location are performed using CT dose reduction for ALARA by means of automated exposure control. FINDINGS: CT ABDOMEN: Lung Bases: Clear. Liver: No significant abnormality. Biliary: Cholecystectomy. Spleen: No significant abnormality. Unenlarged. Pancreas: No significant abnormality. Adrenals: No significant abnormality. Kidneys: The kidneys are normal size, contour and position. A 3 mm calyceal stone is noted in the mid right kidney. No hydronephrosis. Lymphatics: No lymphadenopathy. Vasculature: Moderate diffuse aortic and iliac calcifications. No aneurysm. Bowel/Peritoneum: Mild diverticulosis of the distal colon is identified. No evidence for bowel obstruction or focal inflammation. No free air. No free fluid. The appendix is not identified. CT PELVIS: : Hysterectomy. The bladder and distal ureters are unremarkable. Osseous Structures: Osteopenia. Severe multilevel thoracolumbar spondylosis. Chronic L2 superior endplate fracture is unchanged. No acute oss eous injury is appreciated. Additional Findings: Small umbilical hernia containing fat. IMPRESSION: No evidence for acute injury in the abdomen or pelvis. 3 mm right renal stone, nonobstructing. Diverticulosis of the distal colon. Osteopenia and advanced degenerative changes in the thoracolumbar spine. Surgical changes as described. - Medical Decision Making Patient has chronic findings in cervical and lumbar spine on CT. Patient without signs of acute infection or acute lab abnormality/abnormality. Patient has chronic pain secondary to arthritis and previous lumbar fracture. She will be discharged home to continue her current treatment for chronic pain Critical Care Time: No Critical care attestation.: If time is entered above; I have spent that time in minutes in the direct care of this critically ill patient, excluding procedure time. ED Disposition Clinical Impression: Fall, Musculoskeletal pain Disposition: DC- TO HOME OR SELFCARE Is pt being admited?: No Does the pt Need Aspirin: No Condition: Stable Instructions: Fall Prevention for Older Adults (ED) Additional Instructions: Follow-up with your doctor or doctor/clinic provided. Return if symptoms worsen as indicated by your discharge instructions. Referrals: YENI CABRERA MD [Primary Care Provider] - 3-5 Days your, doctor [Other] - 3-5 Days Time of Disposition: 15:25
[2020-04-09 15:51] VITALS: BP 144/54
== END 2020-04-09 16:30 | disposition home or self-care (01) ==
LOC: ED 11:47
DX: R51 Headache (principal); M54.6 Pain in thoracic spine; R30.0 Dysuria; R35.0 Frequency of micturition; I10 Essential (primary) hypertension; E11.9 Type 2 diabetes mellitus without complications; M19.91 Primary osteoarthritis, unspecified site; J45.909 Unspecified asthma, uncomplicated; K57.30 Diverticulosis of large intestine without perforation or abscess without bleeding; Z90.49 Acquired absence of other specified parts of digestive tract; Z98.890 Other specified postprocedural states; Z79.899 Other long term (current) drug therapy; Z88.0 Allergy status to penicillin; W18.2XXA Fall in (into) shower or empty bathtub, initial encounter; Y93.E1 Activity, personal bathing and showering; Y92.89 Other specified places as the place of occurrence of the external cause; Y99.8 Other external cause status
CPT/HCPCS: 36415; 70450; 72125; 74176; 80048; 81001; 85025

== ENCOUNTER 2020-06-10 01:13 | Emergency (ER) | payer MEDICARE, OTHER ==
--- NOTE | 2020-06-10 01:48 | Emergency Department Report ---
ED General Adult HPI - General Chief complaint: Fall Stated complaint: FALL PUI?: No Time Seen by Provider: 06/10/20 01:24 Source: patient, EMS ( EMS documentation not available at time of chart dictation ), RN notes reviewed, old records reviewed Mode of arrival: Stretcher Limitations: Other (Patient is somewhat of a poor historian.) - History of Present Illness Initial comments: The patient is an 85-year-old female. I have evaluated this patient in the past. Her past medical history includes hypertension, asthma, advanced dementia, and chronic back pain, osteoarthritis, type 2 diabetes She is sent to the emergency room by her local halfway facility because of a reported fall, apparently, the patient had outpatient x-rays at her facility which demonstrated a possible sacral fracture. The patient is not accompanied by friends or family at this time for collateral information. The patient is not sure if she fell. She complains of chronic paralumbar back pain. The patient denies headache, neck pain, chest pain, abdominal pain, shortness of breath. The patient denies extremity weakness. The patient is not quite sure how she arrived to this emergency room (she was brought by emergency medical services.) The patient is asking to eat and drink at this time. As per verbal report from triage nurse, who in turn received report from EMS, who received report from nursing care facility, the fall happened earlier on this evening. -: This evening Location: back (Patient states she has been having back pain for years) Quality: other Consistency: other Improves with: other Worsens with: other Associated Symptoms: other - Related Data Home Medications Medication Instructions Recorded Confirmed Last Taken Amlodipine Besylate [Norvasc] 5 mg PO DAILY 07/20/18 04/30/20 09/08/18 Aspirin [Aspirin EC] 81 mg PO DAILY 07/20/18 04/30/20 09/08/18 Pantoprazole [Protonix TAB] 20 mg PO DAILY 07/20/18 04/30/20 09/08/18 Ranolazine [Ranexa] 500 mg PO BID 07/20/18 04/30/20 Unknown carvediloL [Coreg] 12.5 mg PO BID 07/20/18 04/30/20 09/08/18 Previous Rx's Medication Instructions Recorded Last Taken Type Pravastatin [Pravachol] 40 mg PO QHS tablet 08/18/18 09/08/18 Rx PE/Shark Liver/Ccb [Hemorrhoidal 1 each VT Q6H PRN #30 supp.rect 09/13/18 Unknown Rx 0.25/3/85.5%] Benzonatate [Tessalon Perles] 100 mg PO Q8HR PRN #20 capsule 12/19/19 Unknown Rx Nitrofurantoin [place]/M-Cryst 100 mg PO Q12HR #13 capsule 06/10/20 Unknown Rx [Macrobid CAP] Allergies Allergy/AdvReac Type Severity Reaction Status Date / Time Penicillins Allergy Unknown Verified 07/20/18 19:28 ED Review of Systems ROS: Stated complaint: FALL Other details as noted in HPI Comment: Unobtainable due to pts medical conditions (Limited secondary to underlying dementia limited secondary to underlying demential) Constitutional: denies: fever Respiratory: denies: cough Cardiovascular: denies: chest pain Gastrointestinal: denies: abdominal pain Musculoskeletal: back pain Neurological: confusion ED Past Medical Hx - Past Medical History Hx Hypertension: Yes Hx CVA: Yes Hx Congestive Heart Failure: No Hx Diabetes: Yes Hx Pulmonary Embolism: Yes Hx Renal Disease: No Hx Arthritis: Yes Hx Asthma: Yes Additional medical history: "hearing problems" L2 compression fracture/ diverticulitis/diverticulosis - Surgical History Hx Cholecystectomy: Yes Hx Appendectomy: Yes Additional Surgical History: Aortic Valve Replacement. hystertectomy, Right Carotid Occlusion - Social History Smoking Status: Never Smoker Substance Use Type: None - Medications Home Medications: Home Medications Medication Instructions Recorded Confirmed Last Taken Type Amlodipine Besylate [Norvasc] 5 mg PO DAILY 07/20/18 04/30/20 09/08/18 History Aspirin [Aspirin EC] 81 mg PO DAILY 07/20/18 04/30/20 09/08/18 History Pantoprazole [Protonix TAB] 20 mg PO DAILY 07/20/18 04/30/20 09/08/18 History Ranolazine [Ranexa] 500 mg PO BID 07/20/18 04/30/20 Unknown History carvediloL [Coreg] 12.5 mg PO BID 07/20/18 04/30/20 09/08/18 History Pravastatin [Pravachol] 40 mg PO QHS tablet 08/18/18 04/30/20 09/08/18 Rx PE/Shark Liver/Ccb [Hemorrhoidal 1 each VT Q6H PRN #30 supp.rect 09/13/18 04/30/20 Unknown Rx 0.25/3/85.5%] Benzonatate [Tessalon Perles] 100 mg PO Q8HR PRN #20 capsule 12/19/19 04/30/20 Unknown Rx Nitrofurantoin [place]/M-Cryst 100 mg PO Q12HR #13 capsule 06/10/20 Unknown Rx [Macrobid CAP] ED Physical Exam - General Limitations: No Limitations, Other (Patient is a poor historian and demented) General appearance: in no apparent distress - Head Head exam: Present: atraumatic, normocephalic - Eye Eye exam: Present: normal appearance, EOMI. Absent: nystagmus - ENT ENT exam: Present: normal exam, normal orophraynx, mucous membranes moist, normal external ear exam - Neck Neck exam: Present: normal inspection, full ROM. Absent: tenderness (There is no midline cervical spine tenderness) - Respiratory Respiratory exam: Present: normal lung sounds bilaterally. Absent: respiratory distress, chest wall tenderness - Cardiovascular Cardiovascular Exam: Present: regular rate, normal rhythm, normal heart sounds. Absent: bradycardia, tachycardia, irregular rhythm, systolic murmur, diastolic murmur, rubs, gallop - GI/Abdominal GI/Abdominal exam: Present: soft, normal bowel sounds. Absent: distended, tenderness, guarding, rebound, rigid, pulsatile mass - Extremities Exam Extremities exam: Present: normal inspection, full ROM, pedal edema, other (2+ pulses noted in the bilateral upper and lower extremities. There is no palpable cord. negative Homans sign. Muscular compartments are soft. The pelvis is stable.). Absent: calf tenderness - Back Exam Back exam: Present: normal inspection, paraspinal tenderness. Absent: tenderness, CVA tenderness (R), CVA tenderness (L), vertebral tenderness - Neurological Exam Neurological exam: Present: alert, other (No facial droop. Tongue midline. Extraocular movements intact bilaterally. Facial sensation intact to light touch in V1, V2, V3 distribution bilaterally. 5 and a 5 strength in 4 extr emities. Sensation intact to light touch in 4 extremities.) - Psychiatric Psychiatric exam: Present: normal affect, normal mood - Skin Skin exam: Present: warm, dry, intact, normal color. Absent: rash ED Course Vital Signs 06/10/20 06/10/20 06/10/20 01:31 02:30 03:16 Temperature 98.0 F Pulse Rate 69 Respiratory 18 Rate Blood Pressure 158/56 140/72 137/51 O2 Sat by Pulse 100 96 Oximetry - Reevaluation(s) Reevaluation #1: 06/10/20 02:25 Differential diagnosis, including but not limited to: Sacral fracture, closed head injury, intracranial injury, cervical spine injury, chronic back pain, acute lumbar injury, electrolyte derangement, urinary tract infection Assessment and plan: 85-year-old female status post fall, uncertain if witnessed or not, uncertain in what context, now currently awake, moving 4 extremities, protecting her airway, with report of sacral fracture. Given advanced age, dementia, chronic/acute back pain, we will obtain CT scan of the brain, cervical spine, lumbar spine, bony pelvis CT, x-ray of the pelvis, EKG, urinalysis, appropriate laboratory studies and treat her pain. Assuming this is a sacral fracture, weightbearing as tolerated, outpatient orthopedics, pain medication will be indicated. Nursing team verbally reports to me that patient is ambulatory after her fall at her halfway. Reevaluation #2: 06/10/20 04:13 Patient standing up and in no acute distress. Laboratory studies reviewed and appreciated, urinalysis reviewed and appreciated. Patient observed in this department for hours without clinical decompensation. We will initiate Macrobid therapy, no emergent condition was identified after thorough ER work-up, patient suitable to be discharged back to her halfway. ED Medical Decision Making - Lab Data Result diagrams: 06/10/20 02:59 06/10/20 02:59 Vital Signs 06/10/20 01:31 Temperature 98.0 F Pulse Rate 69 Respiratory 18 Rate Blood Pressure 158/56 O2 Sat by Pulse 100 Oximetry Vital Signs 06/10/20 06/10/20 06/10/20 01:31 02:30 03:16 Temperature 98.0 F Pulse Rate 69 Respiratory 18 Rate Blood Pressure 158/56 140/72 137/51 O2 Sat by Pulse 100 96 Oximetry Lab Results 06/10/20 06/10/20 06/10/20 Range/Units 02:57 02:59 02:59 Hgb 11.6 (10.1-14.3) gm/dl Hct 36.1 (30.3-42.9) % Plt Count 233 (140-440) K/mm3 Sodium 139 (137-145) mmol/L Potassium 3.8 (3.6-5.0) mmol/L Chloride 103.7 (98-107) mmol/L Carbon Dioxide 24 (22-30) mmol/L Anion Gap 15 mmol/L BUN 12 (7-17) mg/dL Creatinine 0.8 (0.6-1.2) mg/dL Estimated GFR > 60 ml/min BUN/Creatinine Ratio 15 % Glucose 140 H (65-100) mg/dL Calcium 9.4 (8.4-10.2) mg/dL Magnesium 1.90 (1.7-2.3) mg/dL Total Creatine Kinase 89 (30-135) units/L Urine Color Ayleen (Yellow) Urine Turbidity Clear (Clear) Urine pH 5.0 (5.0-7.0) Ur Specific [place] 1.021 (1.003-1.030) Urine Protein <15 mg/dl (Negative) mg/dL Urine Glucose (UA) Neg (Negative) mg/dL Urine Ketones Neg (Negative) mg/dL Urine Blood Neg (Negative) Urine Nitrite Neg (Negative) Urine Bilirubin Neg (Negative) Urine Urobilinogen 2.0 (<2.0) mg/dL Ur Leukocyte Esterase Sm (Negative) Urine WBC (Auto) 15.0 H (0.0-6.0) /HPF Urine RBC (Auto) 1.0 (0.0-6.0) /HPF U Epithel Cells (Auto) < 1.0 (0-13.0) /HPF Urine Bacteria (Auto) 1+ (Negative) /HPF Urine WBC Clumps 2+ /HPF Urine Mucus Few /HPF - EKG Data -: EKG Interpreted by Md EKG shows normal: sinus rhythm Rate: normal - EKG Data 06/10/20 02:46 Sinus rhythm, 61 bpm, there is a normal axis, the QTC is within normal limits, the VT interval is prolonged, there is low voltage, and motion artifact, the EKG is abnormal, the EKG is not a STEMI. - Radiology Data Radiology results: pending, report reviewed, image reviewed All CT scans at this location are performed using CT dose reduction for ALARA by means of automated exposure control. COMPARISON: 04/30/2020 FINDINGS: Diffuse cerebral atrophy is present. No mass or mass effect is seen. There is no evidence of intracranial hemorrhage. No obvious area of infarction is identified. Visualized paranasal sinuses are clear. IMPRESSION: No acute findings or interval change from 04/30/2020 Signer Name: Anthony Lau MD FACR Signed: 06/10/2020 1:33 AM Workstation Name: [employer] CT cervical spine wo con INDICATION / CLINICAL INFORMATION: fall closed head injury. TECHNIQUE: All CT scans at this location are performed using CT dose reduction for ALARA by means of automated exposure control. COMPARISON: 04/09/2020 FINDINGS: The prevertebral soft tissues are normal in thickness. No fracture is seen. Normal alignment is present. Spondylosis is present from C4 to C7. No spinal stenosis is seen. Paracervical soft tissues are normal. IMPRESSION: Spondylosis from C4 to C7. No evidence of a fracture. No change from prior examination dated 04/09/2020 Signer Name: Anthony Lau MD FACR Signed: 06/10/2020 1:35 AM Workstation Name: [employer] CT pelvis wo con INDICATION / CLINICAL INFORMATION: fall sacral fracture. TECHNIQUE: All CT scans at this location are performed using CT dose reduction for ALARA by means of automated exposure control. COMPARISON: None available. FINDINGS: Advanced degenerative changes seen in the lower lumbar spine and in both hips. There is no evidence for fracture. The sacrum is unremarkable in appearance. Pubic rami are normal. No free fluid is seen in the pelvis. Changes of diverticulosis are present. The bladder is normal. IMPRESSION: Advanced degenerative change in the lower lumbar spine and in both hips. No evidence of a fracture. In particular, the sacrum is normal. Signer Name: Anthony Lau MD FACR Signed: 06/10/2020 1:39 AM Workstation Name: [employer] Print Report Referring Physician: SUDHEER HAYES Patient Name: JONAH RAY Date of : 1935 Sex: Female Report Date: 2020-06-10 Report Status: Finalized Findings [facility] [address] [place] [address] Cat Scan Report Signed Patient: JONAH RAY MR#: [id number] 162 : 1935 Acct:[id number] Age/Sex: 85 / F ADM Date: 06/10/20 Loc: ED Attending Dr: Ordering Physician: SUDHEER HAYES MD Date of Service: 06/10/20 Procedure(s): CT lumbar spine wo con Accession Number(s): [id number] cc: SUDHEER HAYES MD CT lumbar spine wo con INDICATION / CLINICAL INFORMATION: fall back pain. TECHNIQUE: All CT scans at this location are performed using CT dose reduction for ALARA by means of automated exposure control. COMPARISON: 07/20/2018 FINDINGS: Old compression fracture at L2. Extensive degenerative change throughout the lumbar region. Alignment is normal. Diffuse atherosclerotic changes seen in the abdominal aorta with diffuse ectasia. Paravertebral soft tissues are normal in appearance. IMPRESSION: 1. Old compression fracture at L2 2. Extensive degenerative change throughout the lumbar spine 3. Atherosclerotic change in diffuse ectasia of the abdominal aorta 3. No interval change from prior examination dated 07/10/2018. Signer Name: Anthony Lau MD FACR Signed: 06/10/2020 2:42 AM Workstation Name: [id number] Transcribed By: MS Dictated By: Anthony Lau MD Electronically Authenticated By: Anthony Lau MD Signed Date/Time: 06/10/20 0242 [id number]/ [id number] Critical care attestation.: If time is entered above; I have spent that time in minutes in the direct care of this critically ill patient, excluding procedure time. ED Disposition Clinical Impression: Back pain, Fall, Dementia, Bacteriuria with pyuria Disposition: DC/TX-70 ANOTHER TYPE HLTHCARE Is pt being admited?: No Does the pt Need Aspirin: No Condition: Stable Additional Instructions: Please make certain to place patient on fall precautions at her halfway. Weightbearing as tolerated, physical activities as tolerated. Patient may benefit from physical therapy/Occupational Therapy evaluation. Recommend patient follow-up with her primary care doctor within the next week. Cultures were sent today, results will be available in the next 3 to 5 days. Take the antibiotics as directed, and have a primary care doctor contact medical records department to obtain culture results. Recommend patient not ambulate without assistance, supervision, it is preferable that the patient ambulate with a walker. Please return to the emergency room right away with new pain, worsening pain, migration of pain, projectile vomiting, change in mental status, confusion, inability to tolerate liquid feeds, new, worsened or different symptoms not present on the initial emergency room evaluation. Referrals: MIGUEL A AMADO MD [Staff Physician] - 3-5 Days Time of Disposition: 04:16 (back to [place] for discharge)
[2020-06-10] MEDS ORDERED: MORPHINE 15 MG ER TAB PO ONE (02:14)
--- NOTE | 2020-06-10 02:38 | Cat Scan Report ---
CT head/brain wo con INDICATION / CLINICAL INFORMATION: fall closed head injury. TECHNIQUE: All CT scans at this location are performed using CT dose reduction for ALARA by means of automated e xposure control. COMPARISON: 04/30/2020 FINDINGS: Diffuse cerebral atrophy is present. No mass or mass effect is seen. There is no evidence of intracra nial hemorrhage. No obvious area of infarction is identified. Visualized paranasal sinuses are clear. IMPRESSION: No acute findings or interval change from 04/30/2020 Signer Name: Anthony Lau MD FACR Signed: 06/10/2020 2:33 AM Workstation Name: [id number]
[2020-06-10] MEDS: MORPHINE 15 MG TAB PO ONE ×2 (02:39→04:53)
--- NOTE | 2020-06-10 02:39 | Cat Scan Report ---
CT cervical spine wo con INDICATION / CLINICAL INFORMATION: fall closed head injury. TECHNIQUE: All CT scans at this location are performed using CT dose reduction for ALARA by means of automated e xposure control. COMPARISON: 04/09/2020 FINDINGS: The prevertebral soft tissues are normal in thickness. No fracture is seen. Normal alignment is prese nt. Spondylosis is present from C4 to C7. No spinal stenosis is seen. Paracervical soft tissues are n ormal. IMPRESSION: Spondylosis from C4 to C7. No evidence of a fracture. No change from prior examination dated 04/09/2020 Signer Name: Anthony Lau MD FACR Signed: 06/10/2020 2:35 AM Workstation Name: [id number]
--- NOTE | 2020-06-10 02:43 | Cat Scan Report ---
CT pelvis wo con INDICATION / CLINICAL INFORMATION: fall sacral fracture. TECHNIQUE: All CT scans at this location are performed using CT dose reduction for ALARA by means of automated e xposure control. COMPARISON: None available. FINDINGS: Advanced degenerative changes seen in the lower lumbar spine and in both hips. There is no evidence f or fracture. The sacrum is unremarkable in appearance. Pubic rami are normal. No free fluid is seen i n the pelvis. Changes of diverticulosis are present. The bladder is normal. IMPRESSION: Advanced degenerative change in the lower lumbar spine and in both hips. No evidence of a fracture. I n particular, the sacrum is normal. Signer Name: Anthony Lau MD FACR Signed: 06/10/2020 2:39 AM Workstation Name: [email or web address]
--- NOTE | 2020-06-10 02:47 | Cat Scan Report ---
CT lumbar spine wo con INDICATION / CLINICAL INFORMATION: fall back pain. TECHNIQUE: All CT scans at this location are performed using CT dose reduction for ALARA by means of automated e xposure control. COMPARISON: 07/20/2018 FINDINGS: Old compression fracture at L2. Extensive degenerative change throughout the lumbar region. Alignment is normal. Diffuse atherosclerotic changes seen in the abdominal aorta with diffuse ectasia. Paraver tebral soft tissues are normal in appearance. IMPRESSION: 1. Old compression fracture at L2 2. Extensive degenerative change throughout the lumbar spine 3. Atherosclerotic change in diffuse ectasia of the abdominal aorta 3. No interval change from prior examination dated 07/10/2018. Signer Name: Anthony Lau MD FACR Signed: 06/10/2020 2:42 AM Workstation Name: [id number]
[2020-06-10 03:39] LABS: Hematocrit 36.1 % (30.3-42.9); Hemoglobin 11.6 gm/dl (10.1-14.3)
[2020-06-10 03:43] VITALS: BP 137/51
[2020-06-10 03:49] LABS: Bacteria,Urine 1+ /HPF (Negative); Bilirubin,Urine NEG (Negative); Blood,Urine NEG (Negative); Color,Urine Amber (Yellow); Mucus,Urine FEW /HPF; Protein,Urine <15 mg/dL mg/dL (Negative)
[2020-06-10 03:50] LABS: BUN/Creatinine Ratio 15; Blood Urea Nitrogen 12 mg/dL (7-17); Calcium 9.4 mg/dL (8.4-10.2); Hemolysis Index 17
[2020-06-10] MEDS ORDERED: NITROFURANTOIN MONOHYD/M-CRYST 100 MG CAP PO ONE (04:13)
== END 2020-06-10 07:00 | disposition other institution (70) ==
LOC: ED 01:13
DX: M54.89 Other dorsalgia (principal); F03.90 Unspecified dementia, unspecified severity, without behavioral disturbance, psychotic disturbance, mood disturbance, and anxiety; R82.71 Bacteriuria; R82.81 Pyuria; E11.9 Type 2 diabetes mellitus without complications; I10 Essential (primary) hypertension; M13.88 Other specified arthritis, other site; R93.89 Abnormal findings on diagnostic imaging of other specified body structures; J45.909 Unspecified asthma, uncomplicated; Z86.73 Personal history of transient ischemic attack (TIA), and cerebral infarction without residual deficits; Z90.49 Acquired absence of other specified parts of digestive tract; Z86.711 Personal history of pulmonary embolism; Z79.01 Long term (current) use of anticoagulants
CPT/HCPCS: 36415; 70450; 72125; 72131; 72192; 80048; 81001; 82550; 83735; 85014; 85018; 85049; 87086; 93005